=== PATIENT | male | born 1970 | race Caucasian/White ===

== ENCOUNTER 2022-06-03 08:13 | Outpatient (REF) | payer OTHER, SELFPAY ==
--- NOTE | ~2022-06-03 | XR_ITS ---
EXAMINATION: XR LUMBOSACRAL SPINE CLINICAL INFORMATION: Low back pain COMPARISON: None TECHNIQUE: Three views of the lumbosacral spine. FINDINGS: 5 nonrib-bearing lumbar-type vertebral bodies. Scalloping involving the mid and anterior aspect of the superior endplate of L3 which may represent a Schmorl's node versus compression fracture. Correlation with physical exam. Grade 1 retrolisthesis of L3 on L4. Mild multilevel degenerative changes with disc space narrowing osteophyte formation and lower lumbar spine facet arthropathy. Vertebral body heights and disc spaces are maintained. Posterior elements are intact. Paraspinal soft tissues are unremarkable. Bowel gas is unremarkable. XR/XR lumbar spine 2-3V IMPRESSION: 1. Scalloping involving the mid and anterior aspect of the superior endplate of L3 which may represent a Schmorl's node versus compression fracture. Correlation with physical exam. If clinically warranted can consider further evaluation with MRI. 2. Grade 1 retrolisthesis of L3 on L4. 3. Mild multilevel degenerative changes.
[2022-06-03 08:24] LABS: MANUAL DIFF FLAG NO
[2022-06-03 09:25] LABS: Basophils Absolute Auto 0.1 X10*3/uL (0.0-0.2); Basophils Percent Auto 0.8 % (0-2); Eosinophils Absolute Auto 0.4 X10*3/uL (0.0-0.4); Eosinophils Percent Auto 4.2 % (0-4); Hematocrit 43.8 % (42.0-52.0); Hemoglobin 14.6 g/dl (14.0-18.0); Imm Gran Abs Auto 0.07 X10*3/uL (0.00-0.03); Imm Gran Pct Auto 0.7 % (0.0-0.4); Lymphocytes Absolute Auto 2.1 X10*3/uL (1.2-4.9); Lymphocytes Percent Auto 22.1 % (20-40); Mean Corpuscular HGB Conc 33.3 g/dl (31.0-36.0); Mean Corpuscular Hemoglobin 32.3 pg (27.0-33.0); Mean Corpuscular Volume 96.9 fL (80.0-98.0); Mean Platelet Volume 10.1 fL (9.4-12.4); Monocytes Absolute Auto 0.7 X10*3/uL (0.1-1.2); Neutrophils Absolute Auto 6.2 x10*3/uL (2.0-8.3); Neutrophils Percent Auto 65.2 % (45-73); Platelet Count 307 X10*3/uL (160-400); Red Blood Count 4.52 X10*6/uL (4.60-5.80); Red Cell Distribution Width 12.8 % (11.0-16.0); White Blood Count 9.5 X10*3/uL (4.8-10.8)
[2022-06-03 09:27] LABS: Appearance Urine Clear; Color Urine Yellow; Glucose Urine UA Negative (Negative); Leukocyte Esterase Urine Negative (Negative); Nitrite Urine Negative (Negative); Urine Blood Negative (Negative); Urine Ketones Negative (Negative); Urine Protein Negative (Neg-Trace)
[2022-06-03 10:27] LABS: Alanine Aminotransferase 24 U/L (0-40); Albumin Level 4.3 g/dL (3.5-5.0); Alkaline Phosphatase 57 U/L (39-117); Anion Gap 14 (12-20); Aspartate Amino Transferase 24 U/L (5-37); Blood Urea Nitrogen 14 mg/dL (9-16); Calcium 8.9 mg/dL (8.4-10.2); Carbon Dioxide 26 mmol/L (22-29); Chloride 104 mmol/L (96-108); Cholesterol 211 mg/dL; Estimated Glomerular Filt Rate > 60; Glucose Fasting 95 mg/dL (60-99); HDL Cholesterol 45 mg/dL; LDL Cholesterol Calculated 155 mg/dl; Potassium 4.5 mmol/L (3.3-5.1); Sodium 139 mmol/L (135-145); TSH reflex Free T4 0.74 uIU/mL (0.32-4.0); Total Protein 6.9 g/dL (6.5-8.0); Triglycerides 55 mg/dL; Vitamin D 25-OH Total 19.8 ng/mL (>30)
[2022-06-03 10:51] LABS: Bilirubin Total 0.4 mg/dL (0.0-1.0)
== END 2022-06-03 08:14 | disposition home or self-care (01) ==
LOC: HO.LAB 08:13
PROVIDERS: PCP Internal Medicine; Visit Provider Internal Medicine
DX: Z00.00 Encounter for general adult medical examination without abnormal findings (principal); Z12.5 Encounter for screening for malignant neoplasm of prostate; M54.50 Low back pain, unspecified; R30.0 Dysuria; N40.0 Benign prostatic hyperplasia without lower urinary tract symptoms; E55.9 Vitamin D deficiency, unspecified; E78.00 Pure hypercholesterolemia, unspecified; I10 Essential (primary) hypertension
CPT/HCPCS: 36415; 72100; 80053; 80061; 81003; 82306; 84153; 84443; 85025

== ENCOUNTER 2023-10-01 16:16 | Outpatient (AMB) | payer OTHER, SELFPAY ==
--- NOTE | 2023-10-01 16:21 | A.OFFPC_ITS ---
Vital Signs 10/01/23 16:22 Height 5 ft 9 in Weight 166 lb 4 oz BMI 24.5 BP 112/68 Blood Pressure Location Lt brachial Position Sitting Pulse 75 Pulse Source Pulse Oximeter Pulse Oximetry (%) 96 Oxygen Delivery Method Room Air Intake Visit Reasons: Annual Exam Intake Note: Patient is here today for a physical. 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 Family And Marriage Counsellor: Not Required per policy Accompanied by: Self / Same As Patient Allergies sertraline Allergy (Severe, Verified 03/05/25 10:08) Tachycardia nicotine Allergy (Intermediate, Verified 03/05/25 10:08) sore throat morphine Allergy (Mild, Verified 03/05/25 10:08) Vomiting Medication List - Last Reconciled 10/01/23 by Car Wolfe MD fluticasone propion-salmeterol 100-50 mcg/dose (Advair Diskus) ea inhalation BID sildenafil 50 - 100 mg PO Ventolin HFA 90 mcg/actuation (albuterol sulfate) 2 puffs inhalation Q6H PRN NS Tobacco use date assessed: 10/01/23 Dental Screening Dental Screen Date: 10/01/23 Did you have a dental visit in the last 12 months?: No Did you have a dental problem in the last 6 months where you did not have access to dental care?: No Was dental information given to patient?: Patient has dentist HPI Annual Exam HPI Details Patient comes in today for his annual physical examination - was last seen over a year ago in 05/2022 States that he has quit drinking alcohol and has been sober for about 1 yr & 9 months now Reports that he has been having trouble sleeping at night lately but overall, he feels okay He denies any headaches or dizziness Denies any chest pains, no increased SOB No nausea/vomiting, no abdominal pain No change in bowel habits noted He denies any acute urinary symptoms States that he still has low back pain but his back pain has kelin His screening colonoscopy was done in 2019 at [facility] and he will be due for repeat colonoscopy in 1 more year (2024) REPLACED BY [facility] Medical History Benign prostatic hyperplasia with urinary frequency Erectile dysfunction COPD (chronic obstructive pulmonary disease) Benign essential hypertension Surgical History History of colonoscopy Hx of tonsillectomy Hx of appendectomy Hx of cervical discectomy Family History Brother Mental health disorder Substance use disorder Mother COPD (chronic obstructive pulmonary disease) Father Peripheral artery disease Sister Diabetes mellitus Son Diabetes mellitus Social History [facility] Alcohol intake: former Year quit: 2021 Patient Tobacco Use Status: Current everyday Tobacco user Tobacco use type: Cigarette Cigarette Packs Per Day: 1 Cigarettes Per Day: 20 e-Cigarette/Vaping Use: Never Used Second Hand Smoke Exposure: Yes service: Yes ([employer]) Current occupational status: employed Cognitive needs: No Hearing needs: No Vision needs: No Questionnaire PHQ-9 Over the last 2 weeks, how often have you been bothered by any of the following problems? 1. Little interest or pleasure in doing things: not at all 2. Feeling down, depressed, or hopeless: not at all 3. Trouble falling or staying asleep, or sleeping too much: not at all 4. Feeling tired or having little energy: not at all 5. Poor appetite or overeating: not at all 6. Feeling bad about yourself - or that you are a failure or have let yourself or your family down: not at all 7. Trouble concentrating on things, such as reading the newspaper or watching television: not at all 8. Moving or speaking so slowly that other people could have noticed. Or the opposite - being so fidgety or restless that you have been moving around a lot more than usual: not at all 9. Thoughts that you would be better off or of hurting yourself in some way: not at all Total score: 0 Depression Screening Interpretation: Negative Depression Screening Done: Yes 94275 - PHQ-9 Billing: Yes Source: Developed by Drs. Nixon Moreau, Abigail Philip, Peter Peña and colleagues, with an educational tone from [employer]. Thrive Questionnaire Date Thrive assessed: 10/01/23 I am a: Patient What is your living situation today?: I have a steady place to live Within the past 12 months, did the food you bought not last and you didn't have the money to get more?: Never true Within the past 12 months, did you worry whether your food would run out before you got money to buy more?: Never true Do you have trouble paying for medicines?: No Do you have trouble getting transportation to medical appointments?: No Do you have trouble paying your heating and electricity bill?: No Do you have trouble taking care of your child, family member or friend?: No Do you have trouble with day-to-day activities such as bathing, preparing meals, shopping, managing finances, etc.?: No Are you currently unemployed and looking for a job?: No Are you interested in more education?: No Currently or been in a relationship where the following occur: no concerns reported THRIVE Score: 0 AUDIT C Alcohol Use Questionnaire (AUDIT-C) 1. How often do you have a drink containing alcohol?: Never Total Score: 0 Score Reviewed/Action Taken: Yes ZAK-7 AMB Questionnaire ZAK-7 Date ZAK - 7 assessed: 10/01/23 Feeling nervous, anxious, or on edge: 0 = Not at all Not being able to stop or control worryin = Not at all Worrying too much about different things: 0 = Not at all Trouble relaxin = Not at all Being so restless that it is hard to sit still: 0 = Not at all Becoming easily annoyed or irritable: 0 = Not at all Feeling afraid as if something awful might happen: 0 = Not at all Total ZAK-7 score (0-4 normal; 5-9 mild; 10-14 moderate; 15-21 severe): 0 Source: Developed by Drs. Nixon Moreau, Abigail Philip, Peter Peña and colleagues, with an educational tone from [employer]. Review of Systems Const Denies chills, Denies fatigue, Denies fever(s), Denies headache(s), Denies malaise and Denies weakness Eyes Denies blurry vision, Denies change in vision, Denies irritation and Denies itchy eyes ENT Denies dysphagia, Denies dizziness, Denies otalgia, Denies headache(s), Denies nasal congestion, Denies neck pain, Denies odynophagia and Denies sore throat Card Denies chest pain, Denies rapid heart rate, Denies irregular heart rhythm, Denies palpitations and Denies dyspnea Resp Denies chest congestion, Denies cough, Denies dyspnea and Denies wheezing GI Denies abdominal pain, Denies bloating, Denies constipation, Denies dysphagia, Denies heartburn, Denies diarrhea, Denies nausea, Denies odynophagia and Denies vomiting Denies hematuria, Denies difficulty urinating, Denies dysuria, Denies urinary frequency and Denies urinary urgency Musc Reports back pain (over the lower back), Denies arthralgias, Denies joint swelling, Denies muscle weakness and Denies neck pain Skin/Breast Denies change in pigmentation, Denies lesions, Denies rash and Denies unusual bruising Neuro Denies dizziness, Denies headache(s), Denies paresthesias and Denies weakness Endo Denies fatigue and Denies palpitations Aller/Immun Denies itchy eyes and Denies wheezing Physical exam (Primary Care) Vital Signs: Last Vital Signs Pulse 75 10/01/23 16:22 BP 112/68 10/01/23 16:22 Pulse Ox 96 10/01/23 16:22 Oxygen Delivery Method Room Air 10/01/23 16:22 BMI result Body Mass Index 24.5 Tobacco/Smoking Status: Tobacco use Status Tobacco use date assessed 10/01/23 10/01/23 16:29 Patient Tobacco Use Status Current everyday Tobacco 10/01/23 16:29 Tobacco use type Cigarette 10/01/23 16:29 e-Cigarette/Vaping Use Never Used 10/01/23 16:29 PHQ-9: PHQ-9 Score PHQ-9: Total score 0 10/01/23 16:58 Depression Screening Interpretation: Negative Thrive Assessment: Date of Thrive Assessment Date Thrive assessed 10/01/23 10/01/23 16:29 Currently or been in a relationship where the following occur: no concerns reported Const General: no acute distress, alert and awake Orientation/consciousness: patient oriented x3 HENMT Head: Yes normocephalic and Yes atraumatic Ears: external ears normal, TM's normal bilaterally and EAC's normal General nose exam: No nasal discharge present Face and sinus: Yes normal facial exam and Yes sinuses nontender Teeth and gingiva: dentition normal Throat: Yes posterior oropharynx normal and Yes tonsils normal (no TP congestion) Eyes Eyelids: Yes eyelids normal Conjunctivae: conjunctivae normal Pupils: Equal, round and reactive pupils present EOM: EOMs intact bilaterally Neck Neck: Yes no lymphadenopathy and Yes supple Thyroid: Thyroid normal Resp Auscultation: clear to auscultation bilaterally, no rales and no wheezes Cardio Rate: regular rate Rhythm: regular rhythm Heart sounds: no murmurs GI Palpation (GI): Soft to palpation, nontender and No hepatosplenomegaly present Auscultation: normal bowel sounds General: Yes no CVA tenderness Back/Spine/Pelvis Back: no CVA tenderness Thoracic/Lumbar Spine: lumbar spinal tenderness (mild) Skin Lesions: no lesions Rashes: no rashes Neuro General: patient oriented x3, moves all extremities, no focal motor deficits and CN's II-XI intact bilaterally Cranial nerves: Yes Equal, round and reactive pupils present Cognition (Neuro): normal cognition Gait exam (Neuro): Normal gait present Extrem General: Yes no clubbing, cyanosis or edema Coding Level of Care Code Est Pt Prev Care 40-64y(85228) Diagnoses Annual physical exam Z00.00 Benign essential hypertension I10 Pulmonary emphysema, unspecified emphysema type J43.9 COPD type: emphysema Emphysema type: unspecified Benign prostatic hyperplasia with urinary frequency N40.1; R35.0 Erectile dysfunction, unspecified erectile dysfunction type N52.9 Erectile dysfunction type: unspecified Compression fracture of lumbar vertebra, unspecified lumbar vertebral level, sequela S32.000S Encounter type: sequela Lumbar vertebra fracture level: unspecified lumbar vertebra Insomnia, unspecified type G47.00 Insomnia type: unspecified
[2023-10-01 16:22] VITALS: BP 112/68; PULSE 75; O2SAT 96; BMI 24.5
== END 2023-10-01 17:07 | disposition home or self-care (01) ==
PROVIDERS: PCP Internal Medicine; Visit Provider Internal Medicine
DX: Z00.00 Encounter for general adult medical examination without abnormal findings (principal); I10 Essential (primary) hypertension; J43.9 Emphysema, unspecified; N40.1 Benign prostatic hyperplasia with lower urinary tract symptoms; R35.0 Frequency of micturition; N52.9 Male erectile dysfunction, unspecified; S32.000S Wedge compression fracture of unspecified lumbar vertebra, sequela; G47.00 Insomnia, unspecified
CPT/HCPCS: 99499

== ENCOUNTER 2025-03-05 09:55 | Outpatient (AMB) | payer OTHER, SELFPAY ==
[2025-03-05 10:07] VITALS: BP 130/82; PULSE 60; O2SAT 97; BMI 22.7
--- NOTE | 2025-03-05 10:07 | MHC.PC.OV ---
Vital Signs 03/05/25 10:07 Height 5 ft 9 in Weight 153 lb 8 oz BMI 22.7 BP 130/82 Blood Pressure Location Lt brachial Position Sitting Pulse 60 Pulse Source Pulse Oximeter Pulse Oximetry (%) 97 Oxygen Delivery Method Room Air Intake Visit Reasons: backwyin Sap Portal Developer Required: No Accompanied by: Self / Same As Patient Allergies sertraline Allergy (Severe, Verified 03/05/25 10:26) Tachycardia nicotine Allergy (Intermediate, Verified 03/05/25 10:26) sore throat morphine Allergy (Mild, Verified 03/05/25 10:26) Vomiting Medication List - Last Reconciled 03/05/25 by Car Wolfe MD fluticasone propion-salmeterol 100-50 mcg/dose (Advair Diskus) 1 inh inhalation BID 30 days sildenafil 50 - 100 mg (0.5 - 1 x 100 mg) PO DAILY PRN trazodone Take 1 to 2 tablets orally bedtime PRN; Ventolin HFA 90 mcg/actuation (albuterol sulfate) 2 puffs inhalation Q6H PRN NS Tobacco use date assessed: 03/05/25 Dental Screening Dental Screen Date: 03/05/25 Did you have a dental visit in the last 12 months?: Yes Did you have a dental problem in the last 6 months where you did not have access to dental care?: No Was dental information given to patient?: Patient has dentist HPI backwyin HPI Details Patient comes in today for his ANNUAL PHYSICAL EXAMINATION States that he has been experiencing increasing low back pain over the past few months Notes that he has been waking up in the morning lately already with increased pain and stiffness in his right thigh and leg and he has to slowly stretch his right leg out and move it around for a few minutes before his leg symptoms will start easing up Recalls that his father was diagnosed with peripheral arterial disease and was experiencing leg symptoms similar to these and he is wondering if he is also starting to develop the same condition as his father Adds that he has been unable to gain any weight over the past year or so States that he quit drinking alcohol completely about 2 years ago and lost a lot of weight initially after he quit as he was not eating properly but states that his appetite has improved significantly over the past year and he still has not been able to gain any weight as a result He denies any headaches or dizziness Denies any chest pains, no increased shortness of breath No nausea/vomiting, no abdominal pain No change in bowel habits noted He denies any acute urinary symptoms He had his screening colonoscopy last done with Dr. Augustine in 2019 and is due now for repeat colonoscopy (5 year recall) [facility] Medical History (Updated 03/08/25 @ 21:13 by Car Wolfe MD) History of alcohol use Smoker Benign prostatic hyperplasia with urinary frequency Erectile dysfunction COPD (chronic obstructive pulmonary disease) Benign essential hypertension Surgical History History of colonoscopy Hx of tonsillectomy Hx of appendectomy Hx of cervical discectomy Family History Brother Mental health disorder Substance use disorder Mother COPD (chronic obstructive pulmonary disease) Father Peripheral artery disease Sister Diabetes mellitus Son Diabetes mellitus Social [facility] Alcohol intake: former Year quit: 2021 Patient Tobacco Use Status: Current everyday Tobacco user Tobacco use type: Cigarette Cigarette Packs Per Day: 1 Cigarettes Per Day: 20 e-Cigarette/Vaping Use: Never Used Second Hand Smoke Exposure: Yes service: Yes ([employer]) Current occupational status: employed Cognitive needs: No Hearing needs: No Vision needs: No Questionnaire PHQ-9 Over the last 2 weeks, how often have you been bothered by any of the following problems? 1. Little interest or pleasure in doing things: several days 2. Feeling down, depressed, or hopeless: not at all 3. Trouble falling or staying asleep, or sleeping too much: several days 4. Feeling tired or having little energy: nearly every day 5. Poor appetite or overeating: nearly every day 6. Feeling bad about yourself - or that you are a failure or have let yourself or your family down: not at all 7. Trouble concentrating on things, such as reading the newspaper or watching television: not at all 8. Moving or speaking so slowly that other people could have noticed. Or the opposite - being so fidgety or restless that you have been moving around a lot more than usual: not at all 9. Thoughts that you would be better off or of hurting yourself in some way: not at all Total score: 8 Depression Screening Interpretation: Positive Depression Screening Follow-up: Existing condition and Follow-up Visit Requested Depression Screening Done: Yes 85813 - PHQ-9 Billing: Yes Source: Developed by Drs. Nixon Moreau, Abigail Philip, Peter Peña and colleagues, with an educational tone from [employer]. Thrive Questionnaire Date Thrive assessed: 03/05/25 I am a: Patient What is your living situation today?: I have a steady place to live Within the past 12 months, did the food you bought not last and you didn't have the money to get more?: Never true Within the past 12 months, did you worry whether your food would run out before you got money to buy more?: Never true Do you have trouble paying for medicines?: No Do you have trouble getting transportation to medical appointments?: No Do you have trouble paying your heating and electricity bill?: No Do you have trouble taking care of your child, family member or friend?: No Do you have trouble with day-to-day activities such as bathing, preparing meals, shopping, managing finances, etc.?: No Are you currently unemployed and looking for a job?: No Are you interested in more education?: I choose not to answer this question Please select the resources that you would like help with: None Currently or been in a relationship where the following occur: I choose not to answer THRIVE Score: 0 AUDIT C Alcohol Use Questionnaire (AUDIT-C) 1. How often do you have a drink containing alcohol?: Never 3. How often do you have six or more drinks on one occasion?: Never Total Score: 0 Score Reviewed/Action Taken: Yes ZAK-7 AMB Questionnaire ZAK-7 Date ZAK - 7 assessed: 03/05/25 Feeling nervous, anxious, or on edge: 1 = Several days Not being able to stop or control worryin = Several days Worrying too much about different things: 0 = Not at all Trouble relaxin = Several days Being so restless that it is hard to sit still: 1 = Several days Becoming easily annoyed or irritable: 1 = Several days Feeling afraid as if something awful might happen: 0 = Not at all Total ZAK-7 score (0-4 normal; 5-9 mild; 10-14 moderate; 15-21 severe): 5 Source: Developed by Drs. Nixon Moreau, Abigail Philip, Peter Peña and colleagues, with an educational tone from [employer]. Review of Systems Const Denies chills, Denies fatigue, Denies fever(s), Denies headache(s), Denies malaise, Denies weakness and Reports weight loss Eyes Denies blurry vision, Denies change in vision, Denies irritation and Denies itchy eyes ENT Denies dysphagia, Denies dizziness, Denies otalgia, Denies headache(s), Denies nasal congestion, Denies neck pain, Denies odynophagia and Denies sore throat Card Denies chest pain, Denies rapid heart rate, Denies irregular heart rhythm, Denies palpitations and Denies dyspnea Resp Denies chest congestion, Denies cough, Denies dyspnea and Denies wheezing GI Denies abdominal pain, Denies bloating, Denies constipation, Denies dysphagia, Denies heartburn, Denies diarrhea, Denies nausea, Denies odynophagia and Denies vomiting Denies hematuria, Denies difficulty urinating, Denies dysuria, Denies urinary frequency and Denies urinary urgency Musc Denies back pain, Denies arthralgias, Denies joint swelling, Denies muscle weakness and Denies neck pain Skin/Breast Denies change in pigmentation, Denies lesions, Denies rash and Denies unusual bruising Neuro Denies dizziness, Denies headache(s), Denies paresthesias and Denies weakness Endo Denies fatigue and Denies palpitations Aller/Immun Denies itchy eyes and Denies wheezing Physical exam (Primary Care) Vital Signs: Last Vital Signs Pulse 60 03/05/25 10:07 BP 130/82 03/05/25 10:07 Pulse Ox 97 03/05/25 10:07 Oxygen Delivery Method Room Air 03/05/25 10:07 BMI result Body Mass Index 22.7 Tobacco/Smoking Status: Tobacco use Status Tobacco use date assessed 03/05/25 03/05/25 10:13 Patient Tobacco Use Status Current everyday Tobacco 03/05/25 10:13 Tobacco use type Cigarette 03/05/25 10:13 e-Cigarette/Vaping Use Never Used 09/04/25 10:13 PHQ-9: PHQ-9 Score PHQ-9: Total score 8 03/05/25 14:15 Depression Screening Interpretation: Positive Depression Screening Follow-up: Existing condition and Follow-up Visit Requested Thrive Assessment: Date of Thrive Assessment Date Thrive assessed 03/05/25 03/05/25 10:13 Currently or been in a relationship where the following occur: I choose not to answer Const General: no acute distress, alert and awake Orientation/consciousness: patient oriented x3 HENMT Head: Yes normocephalic and Yes atraumatic Ears: external ears normal, TM's normal bilaterally and EAC's normal General nose exam: No nasal discharge present Face and sinus: Yes normal facial exam and Yes sinuses nontender Teeth and gingiva: dentition normal Throat: Yes posterior oropharynx normal and Yes tonsils normal (no TP congestion) Eyes Eyelids: Yes eyelids normal Conjunctivae: conjunctivae normal Pupils: Equal, round and reactive pupils present EOM: EOMs intact bilaterally Neck Neck: Yes no lymphadenopathy and Yes supple Thyroid: Thyroid normal Resp Auscultation: clear to auscultation bilaterally, no rales and no wheezes Cardio Rate: regular rate Rhythm: regular rhythm Heart sounds: no murmurs GI Palpation (GI): Soft to palpation, nontender and No hepatosplenomegaly present Auscultation: normal bowel sounds General: Yes no CVA tenderness Back/Spine/Pelvis Back: no CVA tenderness Thoracic/Lumbar Spine: thoracic and lumbar spine normal to inspection Skin Lesions: no lesions Rashes: no rashes Neuro General: patient oriented x3, moves all extremities, no focal motor deficits and CN's II-XI intact bilaterally Cranial nerves: Yes Equal, round and reactive pupils present Cognition (Neuro): normal cognition Gait exam (Neuro): Normal gait present Extrem General: Yes no clubbing, cyanosis or edema Coding Level of Care Code Est Pt Prev Care 40-64y(79550) Diagnoses Annual physical exam Z00.00 Pulmonary emphysema, unspecified emphysema type J43.9 COPD type: emphysema Emphysema type: unspecified Compression fracture of lumbar vertebra, unspecified lumbar vertebral level, sequela S32.000S Encounter type: sequela Lumbar vertebra fracture level: unspecified lumbar vertebra Erectile dysfunction, unspecified erectile dysfunction type N52.9 Erectile dysfunction type: unspecified History of alcohol use Z87.898 Insomnia, unspecified type G47.00 Insomnia type: unspecified Smoker F17.200 Colon cancer screening Z12.11 Additional Codes PHQ-9 - 10240 - PHQ-9 Billing: Yes ([id number]) Assessment & Plan Assessment & Plan (1) Annual physical exam: Code(s): Z00.00 - Encounter for general adult medical examination without abnormal findings Category: Medical Plan: Check labs He is now due for repeat colonoscopy (2) COPD (chronic obstructive pulmonary disease): Code(s): J44.9 - Chronic obstructive pulmonary disease, unspecified Category: Medical Qualifiers: COPD type: emphysema Emphysema type: unspecified Qualified Code(s): J43.9 - Emphysema, unspecified Plan: Continue Advair Diskus 100-50 mcg 1 inhalation BID and Ventolin HFA 1 to 2 inhalations Q 6 hours PRN Will send him for chest x-rays for further evaluation, especially in light of his struggles in regaining some of the weight that he lost immediately following his alcohol cessation (3) Compression fx, lumbar spine: Comment: injury occurred when he fell from roof years ago Code(s): S32.000A - Wedge compression fracture of unspecified lumbar vertebra, initial encounter for closed fracture Category: Medical Qualifiers: Encounter type: sequela Lumbar vertebra fracture level: unspecified lumbar vertebra Qualified Code(s): S32.000S - Wedge compression fracture of unspecified lumbar vertebra, sequela Plan: Reinforced activity and weight-lifting restrictions to avoid aggravating his low back pain (4) Erectile dysfunction: Code(s): N52.9 - Male erectile dysfunction, unspecified Category: Medical Qualifiers: Erectile dysfunction type: unspecified Qualified Code(s): N52.9 - Male erectile dysfunction, unspecified Plan: Continue Sildenafil 50 to 100 mg PRN (5) History of alcohol use: Code(s): Z87.898 - Personal history of other specified conditions Category: Medical Plan: Patient states that he has been sober for over 2 years now He is encouraged to continue working on maintaining his sobriety (6) Insomnia: Code(s): G47.00 - Insomnia, unspecified Category: Medical Qualifiers: Insomnia type: unspecified Qualified Code(s): G47.00 - Insomnia, unspecified Plan: Sleep hygiene reinforced Continue Trazodone 50 mg 1 to 2 tablets Q HS PRN (7) Smoker: Code(s): F17.200 - Nicotine dependence, unspecified, uncomplicated Category: Social Hx Plan: Patient is again counseled on complete smoking cessation Per request, will start him on Nicotine patches to help him quit Will also refer him for lung cancer screening due to his history of smoking (8) Colon cancer screening: Code(s): Z12.11 - Encounter for screening for malignant neoplasm of colon Category: Medical Plan: He is now due for repeat colonoscopy and will refer him back [place] [facility] for this Plan Follow up in 3 months Orders: Orders Lipid Panel 03/05/25 E78.00 - Pure hypercholesterolemia, unspecified, Z00.00 - Encounter for general adult medical examination without abnormal findings Testosterone, Free/Total 03/05/25 R63.4 - Abnormal weight loss Complete Blood Count Auto Diff 03/05/25 D64.9 - Anemia, unspecified, Z00.00 - Encounter for general adult medical examination without abnormal findings Comprehensive [place]. Panel Fast 03/05/25 E78.00 - Pure hypercholesterolemia, unspecified, Z00.00 - Encounter for general adult medical examination without abnormal findings TSH reflex Free T4 03/05/25 E78.00 - Pure hypercholesterolemia, unspecified, Z00.00 - Encounter for general adult medical examination without abnormal findings UA CC w/rflx Micro + Cult 03/05/25 R30.0 - Dysuria, Z00.00 - Encounter for general adult medical examination without abnormal findings Vitamin D 25-OH Total 03/05/25 E55.9 - Vitamin D deficiency, unspecified, Z00.00 - Encounter for general adult medical examination without abnormal findings Vitamin B12 and Folate 03/05/25 E53.8 - Deficiency of other specified B group vitamins, Z00.00 - Encounter for general adult medical examination without abnormal findings Magnesium 03/05/25 E83.42 - Hypomagnesemia, Z00.00 - Encounter for general adult medical examination without abnormal findings Prostate Specific Antigen 03/05/25 N40.0 - Benign prostatic hyperplasia without lower urinary tract symptoms, Z00.00 - Encounter for general adult medical examination without abnormal findings XR chest 2V 03/05/25 F17.200 - Nicotine dependence, unspecified, uncomplicated, R05.9 - Cough, unspecified Hemoglobin A1c 03/05/25 R73.01 - Impaired fasting glucose Referrals Gastroenterology Referral Z12.11 - Encounter for screening for malignant neoplasm of colon Thoracic/General Surgery Referral Z12.2 - Encounter for screening for malignant neoplasm of respiratory organs Medications: New nicotine 1 patch transdermal DAILY 7 ea 0RF 7 days F17.200 - Nicotine dependence, unspecified, uncomplicated nicotine 1 patch transdermal DAILY 7 ea 0RF 7 days F17.200 - Nicotine dependence, unspecified, uncomplicated nicotine 1 patch transdermal Q24H 28 ea 5RF 28 days F17.200 - Nicotine dependence, unspecified, uncomplicated
--- OUTSIDE RECORDS SUMMARY | 2025-03-05 11:00 | XMS_ITS | Encounter Summary ---
Author Organization [facility] Address [address] [place] [id number] Phone Care Team Providers Care Stocklayer Name Role Phone Chela Baca CNP Unavailable Shari Albert MD Unavailable [phone] Raffi Bird MD Unavailable Unavailable Nestor Carmen MD, MPH Primary Care Provider + Encounter Details Date Type Department Care Team (Late st Contact Info) Description 11/30/2020 Procedure Pass [facility] Endoscopy Admitting Dept Virtual Department [address] [place] [id number] Social History Tobacco Use Types Packs/Day Years Used Date Smoking Tobacco: Every Day Cigarettes 1 5 Smokeless Tobacco: Never Alcohol Use Standard Drinks/Week Comments Yes 50 (1 standard drink = 0.6 oz pu re alcohol) Sex and Gender Information Value Date Recorded Sex Assigned at Male 06/01/2020 6:08 PM EST Legal Sex Male 9:37 PM EDT Gender Identity Male 06/01/2020 6:08 PM EST Sexual Orientation Straight 06/01/2020 6: 08 PM EST documented as of this encounter Plan of Treatment Not on file documented as of this encounter Visit Diagnoses Not on filedocumented in this encounter Care Teams Stocklayer Relationship Specialty Start Date End Date Nestor Carmen MD, MPH [address] [place] [address] [email or web address] PCP - General Family Medicine 09/11/19 Chela Baca CNP [address] [place] [address] [address] [place] [address] [email or web address] Historical LMR Provider 04/21/17 Shari Albert MD [address] [place] [address] [address] [place] [address] [email or web address] Historical LMR Provider 04/21/17 07/09/21 Raffi Bird MD Historical LMR Provider 04/21/17 07/09/21 documented as of this encounter Additional Source Comments The information contained in this document represents components of the legal health record. It is not the complete legal health record.[facility]
--- OUTSIDE RECORDS SUMMARY | 2025-03-05 11:01 | XMS_ITS | Clinical Summary ---
Author Organization [facility] Address [facility] [address] [address] Phone Care Team Providers Care Bilingual Interpreter Name Role Phone Chela Baca PHYSICAL SCIENCE PROFESSOR Unavailable [phone] Nestor Carmen MD, MPH Primary Care Provider + Allergies Active Allergy Reactions Criticality Noted Date Comments Morphine Sulfate 03/12/2017 Other reaction(s): nausea Sertraline Hcl 03/12/2017 Other reaction(s): vomiting,throat tightness Medications LISINOPRIL ORAL Take by mouth. Active HYDROCHLOROTHIAZ GRETEL ORAL Take by mouth. Active Active Problems Problem Noted Date Diagnosed Date Pulmonary nodules 06/29/2018 Assessment & Plan (06/29/2018 12:21 PM EST): Repeat CT scan in 3 months for reevaluation of multiple pulmonary nodules. COPD with chronic bronchitis 06/03/2018 Assessment & Plan (06/29/2018 12:18 PM EST): Some chronic wheezing and chronic cough, although pt declines treatments at this time. Urged staying up to date on flu and pneumococcal vaccines. F/u for any worsening wheezing or shortness of breath, or increasing cough productivity. Benign prostatic hyperplasia 06/03/2018 Cervical disc disease 06/03/2018 Depression with anxiety 06/03/2018 Assessment & Plan (06/29/2018 12:23 PM EST): Overall improvement with Wellbutrin XL. Continue current therapies, may consider increasing dose in future. Pt verbalizes understanding and in agreement with plan. Assessment & Plan (06/03/2018 3:25 PM EST): Discussed treatment options. Will start Wellbutrin XL 150 daily for depression and anxiety, which also has indication for smoking cessation. Pt reports that he has been on Wellbutrin in the past with good effect. F/u in office in 3 weeks Erectile dysfunction 06/03/2018 Assessment & Plan (07/09/2018 3:51 PM EST): Continue Viagra as needed. Assessment & Plan (06/29/2018 12:22 PM EST): Will do rx for Viagra. Pt instructed on use, side effects, and adverse effects. F/u as needed for concerns. Family history of aortic aneurysm 06/03/2018 GERD (gastroesophageal reflux disease) 8 Insomnia 06/03/2018 Assessment & Plan (07/09/2018 3:50 PM EST): Improved with use of Mirtazapine. Continue current therapies and f/u in 2 months as scheduled. Assessment & Plan (06/29/2018 12:26 PM EST): Will start Remeron which will help with smoking cessation and appetite stimulation. Pt instructed on use, side effects, and adverse effects. F/u in 6 weeks or sooner as needed. Pt verbalizes understanding and in agreement with plan. Assessment & Plan (06/03/2018 3:24 PM EST): May consider starting Remeron, which will help with sleep and appetite stimulation. Will discuss at f/u appointment in 3 weeks. Low back pain 06/03/2018 Tobacco abuse 06/03/2018 Assessment & Plan (07/09/2018 3:51 PM EST): Pt commended on cutting back on tobacco use. Okay to stop Wellutrin, rx done for Nicorette gum. F/u in 2 months as scheduled. Assessment & Plan (06/29/2018 12:33 PM EST): Continue Wellbutrin. May consider tobacco cessation coaching. 5 minutes of this 30 minute appointment was spent discussing smoking cessation. Will check lipid level today since pt reports that he is fasting and f/u based on results. Assessment & Plan (06/03/2018 3:26 PM EST): 5 minutes of this 15 minute appointment was spent discussing smoking cessation. Pt reports low motivation at this time. Pt declines smoking cessation resources at this time. Alcohol abuse 06/03/2018 Assessment & Plan (06/29/2018 12:25 PM EST): Pt commended on cutting back on alcohol intake. Urged abstinence. Assessment & Plan (06/03/2018 3:25 PM EST): Urged to cut back on alcohol use. Will prescribe multivitamin, thiamine, and folic acid for pt due to his likely poor nutrition and regular alcohol use. Pt verbalizes understanding and in agreement with plan. Unintentional weight loss 06/03/2018 Assessment & Plan (06/29/2018 12:20 PM EST): Suspect this is related to recent stress but pt with another 4 lbs of weight loss over past month. Would recommend regular meals, protein-rich snacks, and avoid alcohol use. If weight loss continues, may consider scanning abdomen and pelvis for other signs of malignancy. Pt verbalizes understanding and in agreement with plan. Assessment & Plan (06/03/2018 3:23 PM EST): Likely related to high situational stress/anxiety, but will do further work up with blood work and possibly CT scanning. Will f/u closely by phone with testing results and f/u in office in 3 weeks. Pt verbalizes understanding and in agreement with plan. Chronic cough 06/03/2018 Assessment & Plan (06/03/2018 3:22 PM EST): Likely undiagnosed COPD due to long history of tobacco abuse. May consider further work up with CT scan of chest if blood work in unremarkable. Pt verbalizes understanding and in agreement with plan. Resolved Problems Problem Noted Date Diagnosed Date Resolved Date Visit for vasectomy evaluation 07/09/2018 07/09/2018 Assessment & Plan (07/09/2018 3:50 PM EST): Will do referral to Dr. Toledo of urology for elective vasectomy. Pt will call to make appointment. Other viral warts 06/29/2018 06/29/2018 Assessment & Plan (06/29/2018 12:31 PM EST): Verbal consent for treatment with liquid nitrogen obtained. Area cleansed with alcohol. Each wart pared down using a #11 scalpel. Using the [id number] technique, each lesion treated with liquid nitrogen for 2 cycles of 10 seconds. Pt tolerated well. Pt instructed on normal healing process after liquid nitrogen treatment. Pt verbalizes understanding Social History Tobacco Use Types Packs/Day Years Used Date Smoking Tobacco: Every Day Cigarettes 1 5 Smokeless Tobacco: Never Tobacco Cessation:Ready to Q uit: No; Counseling Given: No Alcohol Use Standard Drinks/Week Comments Yes 50 (1 standard drink = 0.6 oz pu re alcohol) Education Answer Date Recorded Are you interested in more education? Not on ann e 10/27/2022 Are you concerned about learning? Not on file 10/27/2022 No 10/27/2022 No 10/27/2022 Digital Access Answer Date Recorded No 11/27/2022 No 11/27/2022 Reliable internet access at home? Not on file 11/27/2022 Device with a working camera? Not on file Sex and Gender Information Value Date Recorded Sex Assigned at Male 06/01/2020 6:08 PM EST Legal Sex Male 9:37 PM EDT Gender Identity Male 06/01/2020 6:08 PM EST Sexual Orientation Straight 06/01/2020 6: 08 PM EST Last Filed Vital Signs Vital Sign Reading Time Taken Comments Blood Pressure 159/85 11/30/2020 2:01 PM EDT Pulse 77 11/30/2020 1:46 PM EDT Temperature 36.2 C (97.2 F) 11/30/2020 1:46 PM EDT Respiratory Rate 16 11/30/2020 2:01 PM EDT Oxygen Saturation 100% 11/30/2020 2:01 PM EDT Inhaled Oxygen Concentration - - Weight 77.1 kg (170 lb) 11/26/2020 10:20 AM EDT Height 177.8 cm (5' 10 ) 11/26/2020 10:20 AM EDT Body Mass Index 24.39 11/26/2020 10:20 AM EDT Plan of Treatment Health Maintenance Due Date Last Done Comments DEPRESSION SCREENING 1980 SMOKING Hx and SMOKELESS TOBACCO SCREENING 1981 HEPATITIS C SCREENING 1986 HIV ONE-TIME SCREENING (18-6 5 YEARS) 1986 PNEUMOCOCCAL VACCINES (50+ years) (1 of 2 - PCV) 1987 COLOGUARD 2013 FIT TEST 2013 FOBT 2013 SIGMOIDOSCOPY 2013 VIRTUAL COLONOSCOPY 2013 ZOSTER VACCINES (1 of 2) 2018 CREATININE LEVEL 06/03/2019 06/03/2018 POTASSIUM LEVEL 06/03/2019 06/03/2018 LIPID PANEL 06/28/2023 06/28/2018, 03/20/2015 INFLUENZA VACCINE (#1) 2025 0, 04/09/2019 COVID-19 VACCINE (3 - 2024-2 6 season) 2025 07/30/2020, 06/30/2020 Adult Td,Tdap Booster 04/14/2029 04/14/2019 , 02/13/2008 COLONOSCOPY 11/30/2030 11/30/2020 COLORECTAL CANCER SCREENING 11/30/2030 HEPATITIS A VACCINES Aged Out No long er eligible based on patient's age to complete this topic HIB VACCINES Aged Out No longer eligi ble based on patient's age to complete this topic MENINGOCOCCAL VACCINES (ACWY) Aged Out No longer eligible based on patient's age to complete this topic MENINGOCOCCAL VACCINES (B) Aged Out N o longer eligible based on patient's age to complete this topic Medical Devices Not on file Procedures Procedure Name Priority Date/Time Associated Diagnosis Comments ENDOSCOPY, COLON 11/30/2020 1:22 PM EDT LIPID PANEL Routine 06/28/2018 4:45 PM EST Tobacco abuse COMPREHENSIVE METABOLIC PANEL Routine 06/03/2018 8:49 AM EST Unintentional weight loss from Last 3 Months or Most Recently Relevant to Health Maintenance Results * ENDOSCOPY, COLON (11/30/2020 1:22 PM EDT) Narrative Transcriptions Yony Martin MD - 11/30/2020 1:22 PM EDT Patient Name: Capo Can Attending MD:: YONY MARTIN MD, Procedure Date: 11/30/2020 1:22 PM Date of : 1970 Age: 50 Admit Type: Outpatient Gender: Male Room: [place] [address] Referring MD: Nestor Carmen MD Exam Type: Colonoscopy Indications: Chronic diarrhea, Hematochezia Medications: Monitored Anesthesia Care Procedure: Informed consent was obtained from the patient after discussion of the indications, limitations, alternatives, benefits, and risks of the procedure. Risks specifically discussed include but are not limited to medication reactions, missed lesions, bleeding, perforation, or the need for emergentsurgery. Throughout the procedure, the patient's bloodpressure, pulse, end-tidal CO2, and oxygen saturations were monitored continuously. The Olympus pediatric variable colonoscopePCF-[id number] #3 was introduced through the anus and advanced tothe cecum, identified by appendiceal orifice andileocecal valve. The colonoscopy was performed without difficulty. The patient tolerated the procedurewell. The quality of the bowel preparation wasexcellent. Complications: No immediate complications. Estimated blood loss: Minimal. Findings: The perianal and digital rectal examinations were normal. A 2 mm polyp was found in the ascending colon. The polyp was sessile. The polyp was removed with a cold biopsy forceps. Resection and retrieval werecomplete. Two sessile polyps were found in the descendingcolon. The polyps were diminutive in size. These polypswere removed with a cold biopsy forceps. Resection and retrieval were complete. Scattered small and large-mouthed diverticula were found in the sigmoid colon and ascending colon. Internal hemorrhoids were found during retroflexion. The hemorrhoids were moderate. Anal papilla(e) were hypertrophied. Biopsies for histology were taken with a coldforceps from the right colon and left colon for evaluationof microscopic colitis. The exam was otherwise normal throughout theexamined colon. Impression: - One 2 mm polyp in the ascending colon, removedwith a cold biopsy forceps. Resected and retrieved. - Two diminutive polyps in the descending colon, removed with a cold biopsy forceps. Resected and retrieved. - Diverticulosis in the sigmoid colon and in the ascending colon. - Internal hemorrhoids. - Biopsies were taken with a cold forceps from the right colon and left colon for evaluation of microscopic colitis. Recommendation: - Discharge patient to home. - Await pathology results. - Hemorrhoids are likely the source of rectalbleeding, consider hemorrhoid banding, - Return to GI office as previously scheduled. YONY MARTIN MD, 11/30/2020 1:48:19 PM This report has been signed electronically. Number of Addenda: 0 Note Initiated On: 11/30/2020 1:22 PM Procedure Code(s): --- Professional --- 93227, Colonoscopy, flexible; with biopsy, single or multiple --- Technical --- 41002, Colonoscopy, flexible; with biopsy, single or multiple Diagnosis Code(s): --- Professional --- D12.2, Benign neoplasm of ascending colon D12.4, Benign neoplasm of descending colon K64.8, Other hemorrhoids K52.9, Noninfective gastroenteritis and colitis, unspecified K92.1, Melena (includes Hematochezia) K57.30, Diverticulosis of large intestine without perforation or abscess without bleeding --- Technical --- D12.2, Benign neoplasm of ascending colon D12.4, Benign neoplasm of descending colon K64.8, Other hemorrhoids K52.9, Noninfective gastroenteritis and colitis, unspecified K92.1, Melena (includes Hematochezia) K57.30, Diverticulosis of large intestine without perforation or abscess without bleeding CPT copyright 2018 [employer]. All rights reserved. The codes documented in this report are preliminary and upon ammunition assembly laborer reviewmay be revised to meet current compliance requirements. Procedure Date: 11/30/2020 1:22:[address] [place] [id number] [place] Nestor Carmen MD, MPH GI PROCEDURE ORDERABLES Final Result * (ABNORMAL) Lipid panel (06/28/2018 4:45 PM EST) HDL 69 mg/dL [facility] Comment: Interpretation <40 mg/dL: Low HDL cholesterol (major risk factor for CHD) Greater than or equal to 60 mg/dL: High HDL cholesterol ( negative risk factor for CHD) HDL - cholesterol is affected by a number of factors, e.g. smoking, excerise, hormones, sex and age. CHOLESTEROL 158 0 - 240 mg/dL [facility] TRIGLYCERIDES 70 30 - 160 mg/dL [facility] LDL 75 50 - 129 mg/dL [facility] Comment: LDL levels in terms of risk for coronary heart disease: <100 mg/dL: Optimal 100-129 mg/dL: Near or above optimal 130-159 mg/dL: Borderline high 160-189 mg/dL: High >190 mg/dL: Very High CARDIAC RISK RATIO 2.3(L) 3.4 - 5.0 C [facility] Blood 06/28/2018 4:45 PM EST 06/28/2018 6:34 PM EST us Chela Baca PHYSICAL SCIENCE PROFESSOR LAB BLOOD ORDERABLES F inal Result [address] [address] * (ABNORMAL) Comprehensive metabolic panel (06/03/2018 8:49 AM EST) SODIUM 140 133 - 146 mmol/L [facility] POTASSIUM 4.7 3.3 - 5.1 mmol/L [facility] CHLORIDE 100 96 - 108 mmol/L [facility] CO2 24 21 - 35 mmol/L [facility] BUN 9 6 - 19 mg/dL [facility] CREATININE 0.70 0.5 - 1.5 mg/dL [facility] GLUCOSE 96 70 - 99 mg/dL [facility] ALBUMIN 4.4 3.9 - 4.8 g/dL [facility] TOTAL PROTEIN 7.2 6.5 - 8.0 g/dL [facility] CALCIUM 9.4 8.4 - 10.3 mg/dL [facility] ALKALINE PHOSPHATASE 46 39 - 117 U/L [facility] TOTAL BILIRUBIN 0.4 0.0 - 1.2 mg/dL [facility] AST 26 0 - 37 U/L [facility] ALT 20 0 - 40 U/L [facility] GLOBULIN 2.8 1 - 4.8 g/dL [facility] EGFR 110 >59 mL/min/1.7 3m2 [facility] Comment:If patient is black, multiply result by 1.159. Estimated glomerular filtration rate calculated using the CKD-EPI equation. ANION GAP 21(H) 10 - 20 mmol/L [facility] Blood 06/03/2018 8:49 AM EST 06/03/2018 2:08 PM EST Chela Baca PHYSICAL SCIENCE PROFESSOR LAB BLOOD ORDERABLES F inal Result Performing Organization Address City/State/[facility] Co de Phone Number [address] [address] from Last 3 Months or Most Recently Relevant to Health Maintenance Insurance [facility] [address] [place], [place] [address] [place] [address] [place] [address] [place] [address] [place] [place] [address] [place], [place] [address] [facility] Address: [address] [address] Care Teams Bilingual Interpreter Relationship Specialty Start Date End Date Nestor Carmen MD, MPH [address] [place] [phone] [email or web address] PCP - General Family Medicine 09/11/19 Chela Baca CNP [address] [place] [address] [address] [place] [address] [email or web address] Historical LMR Provider 04/21/17 Additional Source Comments The information contained in this document represents components of the legal health record. It is not the complete legal health record.[facility]
--- OUTSIDE RECORDS SUMMARY | 2025-03-05 11:01 | XMS_ITS | Encounter Summary ---
Author Organization [facility] Address [address] [place] [address] Phone Care Team Providers Care Director Of Cardiac Cath Lab Name Role Phone Chela Baca MIDDLE STITCHER Unavailable [phone] Shari Albert MD Unavailable [phone] Raffi Bird MD Unavailable Unavailable Nestor Carmen MD, MPH Primary Care Provider + Encounter Details Date Type Department Care Team (Latest Contact Info) Description 08/18/2020 Ancillary Orders Virtual Department [address] [place] [address] Barbara Best, YAS [address] [place] [address] [phone] [email or web address] Lumbar radiculopathy Social History Tobacco Use Types Packs/Day Years Used Date Smoking Tobacco: Never Assessed Sex and Gender Information Value Date Recorded Sex Assigned at Male 06/01/2020 6:08 PM EST Legal Sex Male 9:37 PM EDT Gender Identity Male 06/01/2020 6:08 PM EST Sexual Orientation Straight 06/01/2020 6: 08 PM EST documented as of this encounter Plan of Treatment Not on file documented as of this encounter Results * XR LUMBOSACRAL SPINE 4 OR MORE VIEWS (08/20/2020 3:31 PM EST) Anatomical Region Laterality Modality L-spine Computed Radiogr aphy 08/20/2020 3:38 PM EST Narrative 08/20/2020 3:50 PM EST TECHNIQUE: XR LUMBOSACRAL SPINE 4 OR MORE VIEWS CLINICAL HISTORY: Lower back pain. History of compression fracture 6 years prior. Lumbar radiculopathy. FINDINGS: There are 5 lumbar type non-rib bearing vertebrae. There is mild loss of height of T9-T10 to T11-T12 intervertebral disc spaces with mild vertebral endplate sclerosis and mild bony remodeling. There is mild loss of height of superior and inferior T10 vertebral endplates consistent with minimal compression deformity. There is straightening of the lumbar lordotic curvature. There is a moderately severe chronic L3 vertebral body wedge compression fracture, approximately unchanged in height since lumbar spine MRI examination dated 03/16/2017. It demonstrates minimal superior retropulsion and note is made of small to moderate-sized posterior L2-L3 and L3-L4 vertebral endplate osteophytes. There is mild L3 on L4 vertebral body retrolisthesis. Moderate L3-L4 level facet arthropathy with moderate bilateral neural foraminal narrowing. Moderate L4-L5 facet arthropathy with mild neural foraminal narrowing. L5 vertebral body demonstrates mildly biconcave vertebral endplates, probably developmental, and unchanged since the 2017 lumbar spine MRI. Moderate L5-S1 facet arthropathy with moderate bilateral neural foraminal narrowing. There are small posterior L5-S1 vertebral endplate osteophytes. Single AP view that includes SI joints demonstrate mild sclerosis of iliac aspect of both joints. CONCLUSION: Moderate severe chronic L3 vertebral body which compression fracture deformity, approximately unchanged in size since lumbar spine MRI examination dated 03/16/2017. No additional lumbar vertebral body compression fractures. There is however minimal T10 compression fracture deformity. Moderate lumbar spondylosis, with moderate L3-L4 to L5-S1 level facet arthropathy. Moderate L3-L4 and L5-S1 neural foraminal narrowing and mild L4-L5 neural foraminal narrowing. If clinically indicated MRI examination may be useful for further evaluation in this patient with provided clinical history of lumbar radiculopathy. Procedure Note Elvis Spain MD - 08/20/2020 TECHNIQUE: XR LUMBOSACRAL SPINE 4 OR MORE VIEWS CLINICAL HISTORY: Lower back pain. History of compression fracture 6 yearsprior. Lumbar radiculopathy. FINDINGS: There are 5 lumbar type non-rib bearing vertebrae. There is mild loss of height of T9-T10 to T11-T12 intervertebral discspaces with mild vertebral endplate sclerosis and mild bony remodeling.There is mild loss of height of superior and inferior T10 vertebralendplates consistent with minimal compression deformity. There is straightening of the lumbar lordotic curvature. There is a moderately severe chronic L3 vertebral body wedge compressionfracture, approximately unchanged in height since lumbar spine MRIexamination dated 03/16/2017. It demonstrates minimal superior retropulsionand note is made of small to moderate-sized posterior L2-L3 and L3-N1nhuexiykp endplate osteophytes. There is mild L3 on L4 vertebral body retrolisthesis. Moderate L3-L4 levelfacet arthropathy with moderate bilateral neural foraminal narrowing. Moderate L4-L5 facet arthropathy with mild neural foraminal narrowing. L5 vertebral body demonstrates mildly biconcave vertebral endplates,probably developmental, and unchanged since the 2017 lumbar spine MRI.Moderate L5-S1 facet arthropathy with moderate bilateral neural foraminalnarrowing. There are small posterior L5-S1 vertebral endplateosteophytes. Single AP view that includes SI joints demonstrate mild sclerosis of iliacaspect of both joints. CONCLUSION: Moderate severe chronic L3 vertebral body which compression fracturedeformity, approximately unchanged in size since lumbar spine MRIexamination dated 03/16/2017. No additional lumbar vertebral body compression fractures. There ishowever minimal T10 compression fracture deformity. Moderate lumbar spondylosis, with moderate L3-L4 to L5-S1 level facetarthropathy. Moderate L3-L4 and L5-S1 neural foraminal narrowing and mildL4-L5 neural foraminal narrowing. If clinically indicated MRI examination may be useful for furtherevaluation in this patient with provided clinical history of lumbarradiculopathy. Barbara Best NP IMG XR SPINE Final Result documented in this encounter Visit Diagnoses Diagnosis Lumbar radiculopathy Thoracic or lumbosacral neuritis or radiculitis, unspecified Lumbar radiculopathy Thoracic or lumbosacral neuritis or radiculitis, unspecified documented in this encounter Care Teams Director Of Cardiac Cath Lab Relationship Specialty Start Date End Date Nestor Carmen MD, MPH [address] [place] [address] [email or web address] PCP - General Family Medicine 09/11/19 Chela Baca, PRICILA 14 [facility] [address] [place] [phone] [email or web address] Historical LMR Provider 04/21/17 Shari Albert MD [address] [place] [address] [place] [phone] [email or web address] Historical LMR Provider 04/21/17 07/09/21 Raffi Bird MD Historical LMR Provider 04/21/17 07/09/21 documented as of this encounter Additional Source Comments The information contained in this document represents components of the legal health record. It is not the complete legal health record.[facility]
--- OUTSIDE RECORDS SUMMARY | 2025-03-05 11:01 | XMS_ITS | Encounter Summary ---
Author Organization [employer] [facility] Address [address] [place] [address] Care Team Providers Care Exposure Machine Operator Name Role Phone Unavailable Primary Care Provider Unavailabl e Encounter Details Date Type Department Care Team (Latest Contact Info) Description 09/20/2021 Abstract C CONVERSIONS Dental, Provider, DDS Social History Tobacco Use Types Packs/Day Years Used Date Smoking Tobacco: Never Assessed Sex and Gender Information Value Date Recorded Sex Assigned at Male 05/01/2022 10:34 AM EDT Legal Sex Male 10:34 AM EDT Gender Identity Male 05/01/2022 10:34 AM EDT Sexual Orientation Straight 05/01/2022 10 :34 AM EDT documented as of this encounter Plan of Treatment Not on file documented as of this encounter Visit Diagnoses Not on filedocumented in this encounter
--- OUTSIDE RECORDS SUMMARY | 2025-03-05 11:01 | XMS_ITS | Clinical Summary ---
Author Organization [employer] Address [address] [facility] 7t [place] [address] Care Team Providers Care Ditcher Operator Name Role Phone Unavailable Primary Care Provider Unavailabl e Social History Tobacco Use Types Packs/Day Years Used Date Smoking Tobacco: Never Assessed Sex and Gender Information Value Date Recorded Sex Assigned at Male 05/01/2022 10:34 AM EDT Legal Sex Male 10:34 AM EDT Gender Identity Male 05/01/2022 10:34 AM EDT Sexual Orientation Straight 05/01/2022 10 :34 AM EDT Plan of Treatment Health Maintenance Due Date Last Done Comments CT Colonography 1968 Colonoscopy 1968 Colorectal Cancer Screening 1968 Depression Screening 1968 FIT DNA/Cologuard 1968 FIT 1968 FOBT 1968 Lipid Panel 1968 Sigmoidoscopy 1968 Disability Screening 1968 Alcohol/Substance Use Screening 1980 Tobacco Screening 1980 Hepatitis B Vaccines (1 of 3 - 19+ 3-dose series) 1987 Zoster Vaccines (1 of 2) 2018 Dental X-Ray: Full Mouth 06/21/2021 06/20/2018 Pneumococcal Vaccine: 50+ Years (2 of 2 - PCV) 06/02/2022 06/02/2021 Dental Oral Exam 09/18/2022 03/20/2022, 06/20/2018 Dental Prophylaxis 09/18/2022 03/20/2022, 09/20/2021, 09/26/2018 Dental X-Ray: Bitewings 09/21/2022 09/21/19, 06/20/2018 COVID-19 Vaccine (3 - 2023-2 5 season) 2024 07/30/2020, 06/30/2020 Influenza Vaccine (#1) 2025 1, 04/19/2020, 04/09/2019 DTaP/Tdap/Td Vaccines (2 - T d or Tdap) 04/14/2029 04/14/2019 RSV Patients and Patients Aged 60 years or older (1 - 1-dose 75+ series) 2043 HIB Vaccines Aged Out No longer eligi ble based on patient's age to complete this topic HPV Vaccines Aged Out No longer eligi ble based on patient's age to complete this topic Hepatitis A Vaccines Aged Out No long er eligible based on patient's age to complete this topic IPV Vaccines Aged Out No longer eligi ble based on patient's age to complete this topic Meningococcal B Vaccine Aged Out No l onger eligible based on patient's age to complete this topic Meningococcal Vaccine Aged Out No mark maggie eligible based on patient's age to complete this topic RSV under 20 months Aged Out No longe r eligible based on patient's age to complete this topic Rotavirus Vaccines Aged Out No longer eligible based on patient's age to complete this topic Procedures Procedure Name Priority Date/Time Associated Diagnosis Comments PROPHYLAXIS - ADULT Routine 03/20/2022 1 2:00 AM EDT PERIODIC ORAL EVALUATION - ESTABLISHED PATIENT Routine 03/20/2022 12:00 AM EDT BITEWINGS - 2 RADIOGRAPHIC IMAGES Routine 09/20/2021 12:00 AM EDT INTRAORAL - COMPLETE SERIES OF RADIOGRAPHIC IMAGES Routine 06/20/2018 12:00 AM EST from Last 3 Months or Most Recently Relevant to Health Maintenance
--- OUTSIDE RECORDS SUMMARY | 2025-03-05 11:01 | XMS_ITS | Encounter Summary ---
Author Organization [facility] Address [address] [place] [address] Phone Care Team Providers Care Therapeutic Activities Services Worker Name Role Phone Chela Baca CNC MAINTENANCE MECHANIC Unavailable Shari Albert MD Unavailable [phone] Raffi Bird MD Unavailable Unavailable Unknown, Unknown Primary Care Provider Nestor Samayoa MD, MPH Primary Care Provider + Encounter Details Date Type Department Care Team (Late st Contact Info) Description 09/24/2018 Procedure Pass [facility] Endoscopy Admitting Dept Virtual Department [address] [place] [address] [phone] Social History Tobacco Use Types Packs/Day Years [...] Diagnoses Not on filedocumented in this encounter Additional Health Concerns Infection Onset Date Last Indicated Resolved Time CoV-Risk 08/02/2020 08/03/2020 08/12/2020 1:24 AM EST documented as of this encounter Care Teams Therapeutic Activities Services Worker Relationship Specialty Start Date End Date Unknown, Unknown, MD PCP - General 08/02/18 09/10/19 Nestor Carmen MD, MPH [address] [place] [address] [email or web address] PCP - General Family Medicine 09/11/19 Chela Baca CNP [address] [place] [address] [place] [address] [email or web address] Historical LMR Provider 04/21/17 Shari Albert MD [address] [place] [address] [email or web address] Historical LMR Provider 04/21/17 07/09/21 Raffi Bird MD Historical LMR Provider 04/21/17 07/09/21 documented as of this encounter Additional Source Comments The information contained in this document represents components of the legal health record. It is not the complete legal health record.[facility]
--- OUTSIDE RECORDS SUMMARY | 2025-03-05 11:01 | XMS_ITS | Encounter Summary ---
Author Organization [employer] [facility] Address [address] [facility] 7 [place] [address] Care Team Providers Care Payroll Machine Operator Name Role Phone Unavailable Primary Care Provider Unavailabl e Encounter Details Date Type Department Care Team (Latest Contact Info) Description 09/26/2018 Abstract C CONVERSIONS Dental, Provider, DDS Social [...]
--- OUTSIDE RECORDS SUMMARY | 2025-03-05 11:01 | XMS_ITS | Encounter Summary ---
Author Organization [facility] Address [address] [place] [address] Phone Care Team Providers Care Environmental Officer Name Role Phone Chela Baca PULPER Unavailable Shari Albert MD Unavailable [phone] Raffi Bird MD Unavailable Unavailable Nestor Carmen MD, MPH Primary Care Provider + Encounter Details Date Type Department Care Team (Late st Contact Info) Description 08/02/2020 Transcribe Orders Virtual Department [address] [place] [address] Ana Moncada, ENROLLMENT PROCESSOR [address] [place] [address] Fever, unspecified fever cause (Primary Dx) Social History Tobacco Use Types Packs/Day Years [...] documented as of this encounter Results * COVID-19 PCR Order (08/03/2020 10:20 AM EST) COVID Testing Status Specimen received in analyzing lab. Results should be available within 24 to 48 hrs. [facility] Symptomatic? YES [facility] 08/03/2020 10:2 0 AM EST 08/03/2020 5:09 PM EST Ana Moncada ENROLLMENT PROCESSOR BODY FLUIDS AND STOOLS ORDER LESLIE Final Result [facility] [address] [place] [address] [facility] [address] [place] [address] documented in this encounter Visit Diagnoses Diagnosis Fever, unspecified fever cause- Primary documented in this encounter Additional Health Concerns Infection Onset Date Last Indicated Resolved Time CoV-Risk 08/02/2020 08/03/2020 08/12/2020 1:24 AM EST documented as of this encounter Care Teams Environmental Officer Relationship Specialty Start Date End Date Nestor Carmen MD, MPH [address] [place] [address] [email or web address] PCP - General Family Medicine 09/11/19 Chela Baca, PRICILA 14 [facility] [address] [place] [address] Historical LMR Provider 04/21/17 Shari Albert MD [address] [place] [address] [address] [place] [address] [email or web address] Historical LMR Provider 04/21/17 07/09/21 Raffi Bird MD Historical LMR Provider 04/21/17 07/09/21 documented as of this encounter Additional Source Comments The information contained in this document represents components of the legal health record. It is not the complete legal health record.[facility]
== END 2025-03-05 10:44 | disposition home or self-care (01) ==
LOC: HO.HMCH 09:56
PROVIDERS: PCP Internal Medicine; Visit Provider Internal Medicine
DX: Z00.00 Encounter for general adult medical examination without abnormal findings (principal); J43.9 Emphysema, unspecified; S32.000S Wedge compression fracture of unspecified lumbar vertebra, sequela; N52.9 Male erectile dysfunction, unspecified; Z87.898 Personal history of other specified conditions; G47.00 Insomnia, unspecified; F17.200 Nicotine dependence, unspecified, uncomplicated; Z12.11 Encounter for screening for malignant neoplasm of colon

== ENCOUNTER → 2025-03-05 09:55 | Outpatient (BNVA) | payer OTHER, SELFPAY | PROVIDERS: PCP Internal Medicine; Visit Provider Internal Medicine | DX: Z00.00 Encounter for general adult medical examination without abnormal findings (principal); M54.50 Low back pain, unspecified; J43.9 Emphysema, unspecified; N52.9 Male erectile dysfunction, unspecified; G47.00 Insomnia, unspecified; F17.210 Nicotine dependence, cigarettes, uncomplicated; S32.000S Wedge compression fracture of unspecified lumbar vertebra, sequela; X58.XXXS Exposure to other specified factors, sequela; Z87.898 Personal history of other specified conditions | CPT/HCPCS: 96127 ==

== ENCOUNTER 2025-03-10 06:07 | Outpatient (REF) | payer OTHER, SELFPAY ==
--- NOTE | ~2025-03-10 | XR_ITS ---
EXAMINATION: XR CHEST CLINICAL INFORMATION: F17.200 - Nicotine dependence, unspecified, uncomplicated COMPARISON: None available. TECHNIQUE: 2 views of the chest were obtained. FINDINGS: Hyperinflated lungs. Pulmonary reticular pattern. Bilateral apical lung scarring. No consolidation, pleural effusion or pneumothorax. Cardiomediastinal silhouette size is small. Multilevel spondylosis. XR/XR chest 2V IMPRESSION: Consider COPD emphysematous type changes without gross acute airspace disease. Electronically signed by: Marvin Melendrez MD 03/10/2025 07:44 AM EDT
--- OUTSIDE RECORDS SUMMARY | 2025-03-10 06:10 | XMS_ITS | Clinical Summary ---
Author Organization [facility] Address [facility] [employer] [address] [address] Phone Care Team Providers Care Railroad Inspector Name Role Phone Chela Baca RUG DYER HELPER Unavailable Nestor Carmen MD, MPH Primary Care [...] down using a #11 scalpel. Using the [id number] technique, each lesion treated with liquid nitrogen [...] 52 Admit Type: Outpatient Gender: Male Room: [place] [address] Referring MD: Nestor Carmen MD Exam Type: [...] 1:22 PM Procedure Code(s): --- Professional --- 13253, Colonoscopy, flexible; with biopsy, single or multiple --- Technical --- 97827, Colonoscopy, flexible; with biopsy, single or multiple [...] or abscess without bleeding CPT copyright 2018 [employer]. All rights reserved. The codes documented in this report are preliminary and upon manager of broadcast content reviewmay be revised to meet current compliance requirements. Procedure Date: 11/30/2020 1:22:[address] [place] [address] us Nestor Carmen MD, MPH GI PROCEDURE ORDERABLES Final Result * (ABNORMAL) Lipid panel (06/28/2018 4:45 PM EST) HDL 69 mg/dL [facility] Comment: Interpretation <40 mg/dL: Low HDL cholesterol (major risk factor for CHD) Greater than or equal to 60 mg/dL: High HDL cholesterol ( negative risk factor for CHD) HDL - cholesterol is affected by a number of factors, e.g. smoking, excerise, hormones, sex and age. CHOLESTEROL 158 0 - 240 mg/dL [facility] TRIGLYCERIDES 70 30 - 160 mg/dL [facility] LDL 75 50 - 129 mg/dL [facility] Comment: LDL levels in terms of risk for coronary heart disease: <100 mg/dL: Optimal 100-129 mg/dL: Near or above optimal 130-159 mg/dL: Borderline high 160-189 mg/dL: High >190 mg/dL: Very High CARDIAC RISK RATIO 2.3(L) 3.4 - 5.0 C [facility] Blood 06/28/2018 4:45 PM EST 06/28/2018 6:34 PM EST us Chela Baca RUG DYER HELPER LAB BLOOD ORDERABLES F inal Result [address] [address] * (ABNORMAL) Comprehensive metabolic panel (06/03/2018 8:49 AM EST) SODIUM 140 133 - 146 mmol/L [facility] POTASSIUM 4.7 3.3 - 5.1 mmol/L [facility] CHLORIDE 100 96 - 108 mmol/L [facility] CO2 24 21 - 35 mmol/L [facility] BUN 9 6 - 19 mg/dL [facility] CREATININE 0.70 0.5 - 1.5 mg/dL [facility] GLUCOSE 96 70 - 99 mg/dL [facility] ALBUMIN 4.4 3.9 - 4.8 g/dL [facility] TOTAL PROTEIN 7.2 6.5 - 8.0 g/dL [facility] CALCIUM 9.4 8.4 - 10.3 mg/dL [facility] ALKALINE PHOSPHATASE 46 39 - 117 U/L [facility] TOTAL BILIRUBIN 0.4 0.0 - 1.2 mg/dL [facility] AST 26 0 - 37 U/L [facility] ALT 20 0 - 40 U/L [facility] GLOBULIN 2.8 1 - 4.8 g/dL [facility] EGFR 110 >59 mL/min/1.7 3m2 [facility] Comment:If patient is black, multiply result by 1.159. Estimated glomerular filtration rate calculated using the CKD-EPI equation. ANION GAP 21(H) 10 - 20 mmol/L [facility] Blood 06/03/2018 8:49 AM EST 06/03/2018 2:08 PM EST Chela Baca RUG DYER HELPER LAB BLOOD ORDERABLES F inal Result Performing Organization Address City/State/[facility] Co de Phone Number [address] [address] from Last 3 Months or Most Recently Relevant to Health Maintenance Insurance [facility] [address] [place] [address] [place] [place] [address] [place] [address] [place] [address] [place] [address] [place] [address] [facility] HMO Care Teams Railroad Inspector Relationship Specialty Start Date End Date Nestor Carmen MD, MPH [address] [place] [address] [email or web address] PCP - General Family Medicine 09/11/19 Chela Baca CNP [address] [place] [address] [address] [place] [address] [email or web address] Historical LMR Provider 04/21/17 Additional Source Comments The information contained in this document represents components of the legal health record. It is not the complete legal health record.[facility]
--- OUTSIDE RECORDS SUMMARY | 2025-03-10 06:10 | XMS_ITS | Encounter Summary ---
Author Organization [facility] Address [address] [place] [address] Phone Care Team Providers Care Quantitative Researcher Name Role Phone Chela Baca WEIGHBRIDGE OPERATOR Unavailable [phone] Shari Albert MD Unavailable [phone] Raffi Bird MD Unavailable Unavailable Nestor Carmen MD, MPH Primary Care Provider + Encounter Details Date Type Department Care Team (Late st Contact Info) Description 08/02/2020 Transcribe Orders Virtual Department [address] [place] [address] Ana Moncada, FUNERAL PRE ARRANGEMENT COUNSELOR [address] [place] [address] Fever, unspecified fever cause (Primary Dx) Social [...] be available within 24 to 48 hrs. [facility] Symptomatic? YES [facility] 08/03/2020 10:2 0 AM EST 08/03/2020 5:09 PM EST Ana Moncada FUNERAL PRE ARRANGEMENT COUNSELOR BODY FLUIDS AND STOOLS ORDER LESLIE Final Result [facility] [address] [place] [address] [facility] [address] [place] [address] documented in this encounter Visit Diagnoses Diagnosis Fever, unspecified fever cause- Primary documented in this encounter Additional Health Concerns Infection Onset Date Last Indicated Resolved Time CoV-Risk 08/02/2020 08/03/2020 08/12/2020 1:24 AM EST documented as of this encounter Care Teams Quantitative Researcher Relationship Specialty Start Date End Date Nestor Carmen MD, MPH [address] [place] [address] [email or web address] PCP - General Family Medicine 09/11/19 Chela Baca, PRICILA 14 [facility] [address] [place] [address] Historical LMR Provider 04/21/17 Shari Albert MD [address] [place] [address] [address] [place] [address] [email or web address] Historical LMR Provider 04/21/17 07/09/21 Raffi Bird MD Historical LMR Provider 04/21/17 07/09/21 documented as of this encounter Additional Source Comments The information contained in this document represents components of the legal health record. It is not the complete legal health record.[facility]
--- OUTSIDE RECORDS SUMMARY | 2025-03-10 06:10 | XMS_ITS | Clinical Summary ---
Author Organization [employer] Address [address] [facility] 7t [place] [address] Care Team Providers Care Coupler Name Role Phone Unavailable Primary Care Provider [...] 09/21/2022 09/21/19, 06/20/2018 COVID-19 Vaccine (3 - 2024-2 6 season) 2025 07/30/2020, 06/30/2020 Influenza Vaccine (#1) 2025 1, [...]
--- OUTSIDE RECORDS SUMMARY | 2025-03-10 06:10 | XMS_ITS | Encounter Summary ---
Author Organization [facility] Address [address] [place] [address] Phone Care Team Providers Care Biomedical Electronics Technician Name Role Phone Chela Baca GROCERY CHECKER Unavailable Shari Albert MD Unavailable [phone] Raffi Bird MD Unavailable Unavailable Nestor Carmen MD, MPH Primary Care Provider + Encounter Details Date Type Department Care Team (Latest Contact Info) Description 08/18/2020 Ancillary Orders Virtual Department [address] [place] [address] Barbara Best, YAS [address] [place] [phone] [email or web address] Lumbar radiculopathy Social History Tobacco Use Types [...] of small to moderate-sized posterior L2-L3 and L3-[id number] endplate osteophytes. There is mild L3 on [...] unspecified documented in this encounter Care Teams Biomedical Electronics Technician Relationship Specialty Start Date End Date Nestor Carmen MD, MPH [address] [place] [address] [email or web address] PCP - General Family Medicine 09/11/19 Chela Baca, PRICILA 14 [facility] [address] [place] [address] [email or web address] Historical LMR Provider 04/21/17 Shari Albert MD [address] [place] [address] [place] [address] [email or web address] Historical LMR Provider 04/21/17 07/09/21 Raffi Bird MD Historical LMR Provider 04/21/17 07/09/21 documented as of this encounter Additional Source Comments The information contained in this document represents components of the legal health record. It is not the complete legal health record.[facility]
--- OUTSIDE RECORDS SUMMARY | 2025-03-10 06:10 | XMS_ITS | Encounter Summary ---
Author Organization [employer] [facility] Address [address] [facility] 7 [place] [address] Care Team Providers Care Weigh Box Tender Name Role Phone Unavailable Primary Care Provider [...]
--- OUTSIDE RECORDS SUMMARY | 2025-03-10 06:10 | XMS_ITS | Encounter Summary ---
Author Organization [facility] Address [address] [place] [address] Phone Care Team Providers Care Telecommunications Equipment Installer Name Role Phone Chela Baca CNP Unavailable [phone] Shari Albert MD Unavailable [phone] Raffi Bird MD Unavailable Unavailable Nestor Carmen MD, MPH Primary Care Provider + Encounter Details Date Type Department Care Team (Late st Contact Info) Description 11/30/2020 Procedure Pass [facility] Endoscopy Admitting Dept Virtual Department [address] [place] [address] Social History Tobacco Use Types Packs/Day Years [...] on filedocumented in this encounter Care Teams Telecommunications Equipment Installer Relationship Specialty Start Date End Date Nestor Carmen MD, MPH [address] [place] [address] [email or web address] PCP - General Family Medicine 09/11/19 Chela Baca CNP [address] [place] [address] [address] [place] [address] [email or web address] Historical LMR Provider 04/21/17 Shari Albert MD [address] [place] [address] [address] [place] [address] [email or web address] Historical LMR Provider 04/21/17 07/09/21 Raffi Bird MD Historical LMR Provider 04/21/17 07/09/21 documented as of this encounter Additional Source Comments The information contained in this document represents components of the legal health record. It is not the complete legal health record.[facility]
--- OUTSIDE RECORDS SUMMARY | 2025-03-10 06:10 | XMS_ITS | Encounter Summary ---
Author Organization [facility] Address [address] [place] [address] Phone Care Team Providers Care Worm Picker Name Role Phone Chela Baca PHYSICAL THER Unavailable Shari Albert MD Unavailable [phone] Raffi Bird MD Unavailable Unavailable Unknown, Unknown Primary Care Provider Nestor Samayoa MD, MPH Primary Care Provider + Encounter Details Date Type Department Care Team (Late st Contact Info) Description 09/24/2018 Procedure Pass [facility] Endoscopy Admitting Dept Virtual Department [address] [place] [address] [phone] Social History Tobacco Use Types Packs/Day Years [...] documented as of this encounter Care Teams Worm Picker Relationship Specialty Start Date End Date Unknown, Unknown, MD PCP - General 08/02/18 09/10/19 Nestor Caremn MD, MPH [address] [place] [address] [email or web address] PCP - General Family Medicine 09/11/19 Chela Baca CNP [address] [place] [address] [place] [address] [email or web address] Historical LMR Provider 04/21/17 Shari Albert MD [address] [place] [address] [email or web address] Historical LMR Provider 04/21/17 07/09/21 Raffi Bird MD Historical LMR Provider 04/21/17 07/09/21 documented as of this encounter Additional Source Comments The information contained in this document represents components of the legal health record. It is not the complete legal health record.[facility]
--- OUTSIDE RECORDS SUMMARY | 2025-03-10 06:10 | XMS_ITS | Encounter Summary ---
Author Organization [employer] [facility] Address [address] [facility] 7 [place] [address] Care Team Providers Care International Coordinator Name Role Phone Unavailable Primary Care Provider [...]
[2025-03-10 06:29] LABS: MANUAL DIFF FLAG NO
[2025-03-10 07:56] LABS: Hematocrit 42.1 % (42.0-52.0); Hemoglobin 14.7 g/dl (14.0-18.0); Imm Gran Abs Auto 0.07 X10*3/uL (0.00-0.03); Imm Gran Pct Auto 0.6 % (0.0-0.4); Lymphocytes Absolute Auto 2.0 X10*3/uL (1.2-4.9); Mean Corpuscular HGB Conc 34.9 g/dl (31.0-36.0); Mean Corpuscular Hemoglobin 32.9 pg (27.0-33.0); Mean Corpuscular Volume 94.2 fL (80.0-98.0); NRBC Abs Auto 0.000 X10*3/uL (0.0-0.012); NRBC Pct Auto 0.0 /100WBC (0.0-0.2); Platelet Count 342 X10*3/uL (160-400); Red Blood Count 4.47 X10*6/uL (4.60-5.80); White Blood Count 11.2 X10*3/uL (4.8-10.8)
[2025-03-10 08:06] LABS: Hemoglobin A1C 127.1878 umol/L; Total Hemoglobin (HGBA1C) 3848.7656 umol/L
[2025-03-10 08:22] LABS: Appearance Urine Clear; Glucose Urine UA Negative (Negative); PH 5.5 (5.0-9.0); Specific Gravity - Urine 1.015 (1.005-1.025)
[2025-03-10 08:38] LABS: Alanine Aminotransferase 27 U/L (0-40); Albumin Level 4.5 g/dL (3.5-5.0); Alkaline Phosphatase 58 U/L (39-117); Anion Gap 12 (12-20); Aspartate Amino Transferase 32 U/L (5-37); Blood Urea Nitrogen 14 mg/dL (9-16); Calcium 8.8 mg/dL (8.4-10.2); Carbon Dioxide 27 mmol/L (22-29); Chloride 105 mmol/L (96-108); Cholesterol 192 mg/dL (<200); Estimated Glomerular Filt Rate > 60; HDL Cholesterol 49 mg/dL (>40); Magnesium 2.1 mg/dL (1.6-2.6); Potassium 4.4 mmol/L (3.3-5.1); Sodium 140 mmol/L (135-145); Total Protein 7.2 g/dL (6.5-8.0); Triglycerides 72 mg/dL (<150)
[2025-03-10 08:58] LABS: Folate 10.2 ng/mL (> or = 4.0); Prostate Specific Antigen 0.86 ng/mL (<0.05-4.0); Vitamin B12 655 pg/mL (200-900)
[2025-03-14 14:47] LABS: Testosterone, Free 67.6 pg/mL (35.0-155.0)
== END 2025-03-10 06:08 | disposition home or self-care (01) ==
LOC: HO.LAB 06:07
PROVIDERS: PCP Internal Medicine; Visit Provider Internal Medicine
DX: Z00.00 Encounter for general adult medical examination without abnormal findings (principal); Z12.5 Encounter for screening for malignant neoplasm of prostate; F17.200 Nicotine dependence, unspecified, uncomplicated; R05.9 Cough, unspecified; E53.8 Deficiency of other specified B group vitamins; E83.42 Hypomagnesemia; E78.00 Pure hypercholesterolemia, unspecified; R63.4 Abnormal weight loss; D64.9 Anemia, unspecified; N40.0 Benign prostatic hyperplasia without lower urinary tract symptoms; R73.01 Impaired fasting glucose; R30.0 Dysuria
CPT/HCPCS: 36415; 71046; 80053; 80061; 81003; 82306; 82607; 82746; 83036; 83735; 84153; 84402; 84403; 84443; 85025

== ENCOUNTER → 2025-03-10 06:33 | Outpatient (BNV) | payer OTHER, SELFPAY | PROVIDERS: PCP Internal Medicine; Visit Provider Radiology Diagnostic Radiology | DX: J43.9 Emphysema, unspecified (principal) | CPT/HCPCS: 71046 ==

== ENCOUNTER 2025-03-11 10:03 | Outpatient (AMB) | payer OTHER, SELFPAY ==
[2025-03-11 10:48] VITALS: BP 120/84; PULSE 76; TEMP 36.6; O2SAT 99; BMI 22.1
--- NOTE | 2025-03-11 10:48 | MHC.OFFWIV ---
Intake Vital Signs 03/11/25 10:48 Height 5 ft 9 in Weight 150 lb BMI 22.1 BP 120/84 Blood Pressure Location Lt brachial Position Sitting Pulse 76 Pulse Source Pulse Oximeter Temp 97.8 F Temp Source Oral Pulse Oximetry (%) 99 Oxygen Delivery Method Room Air Intake Visit Reasons: EP-lower back pain Intake Note: pt presents with lower back pain radiating down right leg for about a month- reports h/o chronic back pain from an injury 2010 sustained a compression fx- [place] [facility] [place] Tobacco Use Status: Current everyday Tobacco user Allergies sertraline Allergy (Severe, Verified 03/11/25 10:51) Tachycardia nicotine Allergy (Intermediate, Verified 03/11/25 10:51) sore throat morphine Allergy (Mild, Verified 03/11/25 10:51) Vomiting Medication List - Last Reconciled 03/11/25 by Noah Meza MD fluticasone propion-salmeterol 100-50 mcg/dose (Advair Diskus) 1 inh inhalation BID 30 days nicotine 1 patch transdermal DAILY 7 days nicotine 1 patch transdermal DAILY 7 days nicotine 1 patch transdermal Q24H 28 days sildenafil 50 - 100 mg (0.5 - 1 x 100 mg) PO DAILY PRN trazodone Take 1 to 2 tablets orally bedtime PRN; Ventolin HFA 90 mcg/actuation (albuterol sulfate) 2 puffs inhalation Q6H PRN NS Do you need a note to return to daycare/school/sports/work: Yes HPI EP-lower back pain HPI Details History of Present Illness The patient is a 54-year-old male presenting with lower back pain radiating down the right leg. Lower Back Pain: - Onset in 2010 following a fall from a roof, resulting in a lumbar compression fracture at L3/L4. - Persistent back pain since the injury, described as loose and unstable, causing episodes of the back locking up. - Most recent exacerbation began approximately one month ago with radiating pain down the right leg. 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 - Prior evaluation included lumbar X-ray in June 2022. - Treatment included frequent use of Ibuprofen. Sciatica: - Described as pain radiating down the right leg. - Associated with episodes of significant discomfort upon leg straightening. - Duration of approximately one month with a significant impact on daily function. Medical History: - Compression fracture in lumbar spine (L3/L4) in 2010. - Previous episodes of chronic burning pain managed with gabapentin. Medications: - Ibuprofen for pain management. 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 - Impact on work due to pain preventing sleep and functioning. Family History: - Brother diagnosed with lung cancer. Problem List - Lower Back Pain - Sciatica - History of Compression Fracture - Family History of Lung Cancer Patient Instructions - Avoid taking ibuprofen - Take prescribed medications: prednisone, diclofenac, and gabapentin 300 mg at night only - Schedule a follow-up appointment with primary care for back issues. - Consider referral to a back specialist for further evaluation. As per primary care discretion Review of Systems - General: No fever no chills - Neurological: No headaches no dizziness - Ear nose throat: No sore throat no hearing difficulty no ear pain - Cardiovascular: No syncope, no chest pain, no palpitations - Gastrointestinal: No nausea vomiting or diarrhea - Endocrine: No polyuria polydipsia no heat intolerance - Genitourinary: No dysuria , no blood in urine Physical Exam General: No acute distress HEENT: No acute findings Neck: Supple Respiratory system: Able to talk in full sentences, no audible wheeze Gastrointestinal: No pain Extremities: Right leg pain due to sciatica mildly positive straight leg sign Back no pain with percussion 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 awake oriented x3 motor intact Skin: Normal turgor PFSH Medical History History of alcohol use Smoker Benign prostatic hyperplasia with urinary frequency Erectile dysfunction COPD (chronic obstructive pulmonary disease) Benign essential hypertension Surgical History History of colonoscopy Hx of tonsillectomy Hx of appendectomy Hx of cervical discectomy Family History Brother Mental health disorder Substance use disorder Mother COPD (chronic obstructive pulmonary disease) Father Peripheral artery disease Sister Diabetes mellitus Son Diabetes mellitus Social History Housing: [facility] Alcohol intake: former Year quit: 2021 Patient Tobacco Use Status: Current everyday Tobacco user Tobacco use type: Cigarette Cigarette Packs Per Day: 1 Cigarettes Per Day: 20 e-Cigarette/Vaping Use: Never Used Second Hand Smoke Exposure: Yes service: Yes ([employer]) Current occupational status: employed Cognitive needs: No Hearing needs: No Vision needs: No Physical Exam Vital Signs: Last Vital Signs Temp 97.8 F 03/11/25 10:48 Pulse 76 03/11/25 10:48 BP 120/84 03/11/25 10:48 Pulse Ox 99 03/11/25 10:48 Oxygen Delivery Method Room Air 03/11/25 10:48 BMI result Body Mass Index 22.1 Assessment & Plan Assessment & Plan (1) Right lumbar radiculitis: Code(s): M54.16 - Radiculopathy, lumbar region (2) History of back injury: Code(s): Z87.828 - Personal history of other (healed) physical injury and trauma Plan History of Present Illness The patient is a 54-year-old male presenting with lower back pain radiating down the right leg. Lower Back Pain: - Onset in 2010 following a fall from a roof, resulting in a lumbar compression fracture at L3/L4. - Persistent back pain since the injury, described as loose and unstable, causing episodes of the back locking up. - Most recent exacerbation began approximately one month ago with radiating pain down the right leg. 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 - Prior evaluation included lumbar X-ray in June 2022. - Treatment included frequent use of Ibuprofen. Sciatica: - Described as pain radiating down the right leg. - Associated with episodes of significant discomfort upon leg straightening. - Duration of approximately one month with a significant impact on daily function. Medical History: - Compression fracture in lumbar spine (L3/L4) in 2010. - Previous episodes of chronic burning pain managed with gabapentin. Medications: - Ibuprofen for pain management. 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 - Impact on work due to pain preventing sleep and functioning. Family History: - Brother diagnosed with lung cancer. Problem List - Lower Back Pain - Sciatica - History of Compression Fracture - Family History of Lung Cancer Patient Instructions - Avoid taking ibuprofen - Take prescribed medications: prednisone, diclofenac, and gabapentin 300 mg at night only - Schedule a follow-up appointment with primary care for back issues. - Consider referral to a back specialist for further evaluation. As per primary care discretion Medications: New gabapentin 300 mg PO BEDTIME 30 caps 0RF prednisone 20 mg PO DAILY 5 tabs 0RF 5 days diclofenac sodium take it with food 75 mg PO BID 20 tabs 0RF pain 10 days Coding Level of Care Code Est Pt Level 4 (92252) Diagnoses Right lumbar radiculitis M54.16 History of back injury Z87.828
--- OUTSIDE RECORDS SUMMARY | 2025-03-11 12:11 | XMS_ITS | Encounter Summary ---
Author Organization [employer] [facility] Address [address] [facility] 7 [place] [address] Care Team Providers Care Reworker Name Role Phone Unavailable Primary Care Provider [...]
--- OUTSIDE RECORDS SUMMARY | 2025-03-11 12:11 | XMS_ITS | Clinical Summary ---
Author Organization [facility] Address [facility] [address] [address] Phone Care Team Providers Care Compression Molding Machine Operator Name Role Phone Chela Baca SURGICAL RN Unavailable Nestor Carmen MD, MPH Primary Care [...] down using a #11 scalpel. Using the riayap-tell-eidxqd technique, each lesion treated with liquid nitrogen [...] 52 Admit Type: Outpatient Gender: Male Room: [place] [address] Referring MD: Nestor Carmen MD Exam Type: [...] 1:22 PM Procedure Code(s): --- Professional --- 20411, Colonoscopy, flexible; with biopsy, single or multiple --- Technical --- 09894, Colonoscopy, flexible; with biopsy, single or multiple [...] or abscess without bleeding CPT copyright 2018 [employer]. All rights reserved. The codes documented in this report are preliminary and upon felt puller reviewmay be revised to meet current compliance requirements. Procedure Date: 11/30/2020 1:22:[address] [place] [address] us Nestor Carmen MD, MPH GI PROCEDURE [...] RISK RATIO 2.3(L) 3.4 - 5.0 C [facility] Blood 06/28/2018 4:45 PM EST 06/28/2018 6:34 PM EST us Chela Baca SURGICAL RN LAB BLOOD ORDERABLES F inal Result [address] [address] * (ABNORMAL) Comprehensive metabolic panel (06/03/2018 8:49 [...] EST 06/03/2018 2:08 PM EST Chela Baca SURGICAL RN LAB BLOOD ORDERABLES F inal Result Performing Organization Address City/State/[facility] Co de Phone Number [address] [address] from Last 3 Months or Most Recently Relevant to Health Maintenance Insurance [facility] [place] [address] [place] [address] [place] [address] [place] [address] [place] [address] [place] [address] [place] [address] [facility] [facility] [place] Address: [address] [address] Care Teams Compression Molding Machine Operator Relationship Specialty Start Date End Date Nestor Carmen MD, MPH [address] [place] [address] [email or web address] PCP - General Family Medicine 09/11/19 Chela Baca CNP [address] [place] [address] [address] [place] [address] [email or web address] Historical LMR Provider 04/21/17 Additional Source Comments The information contained in this document represents components of the legal health record. It is not the complete legal health record.[facility]
--- OUTSIDE RECORDS SUMMARY | 2025-03-11 12:11 | XMS_ITS | Clinical Summary ---
Author Organization [employer] Address [address] [facility] 7t [place] [address] Care Team Providers Care Rda Name Role Phone Unavailable Primary Care Provider [...]
--- OUTSIDE RECORDS SUMMARY | 2025-03-11 12:11 | XMS_ITS | Encounter Summary ---
Author Organization [facility] Address [address] [place] [address] Phone Care Team Providers Care Security Guard Supervisor Name Role Phone Chela Baca CNP Unavailable [phone] Shari Albert MD Unavailable [phone] Raffi Bird MD Unavailable Unavailable Nestor Carmen MD, MPH Primary Care Provider + Encounter Details Date Type Department Care Team (Late st Contact Info) Description 11/30/2020 Procedure Pass [facility] Endoscopy Admitting Dept Virtual Department [address] [place] [id number] Social History Tobacco Use Types Packs/Day Years [...] on filedocumented in this encounter Care Teams Security Guard Supervisor Relationship Specialty Start Date End Date Nestor Carmen MD, MPH [address] [place] [address] josé PCP - General Family Medicine 09/11/19 Chela Baca CNP [address] [place] [address] [address] [place] [address] [email or web address] Historical LMR Provider 04/21/17 Shari Albert MD [address] [place] [address] [address] [place] [address] [email or web address] Historical LMR Provider 04/21/17 07/09/21 Raffi Bird MD Historical LMR Provider 04/21/17 07/09/21 documented as of this encounter Additional Source Comments The information contained in this document represents components of the legal health record. It is not the complete legal health record.[facility]
--- OUTSIDE RECORDS SUMMARY | 2025-03-11 12:11 | XMS_ITS | Encounter Summary ---
Author Organization [employer] [facility] Address [address] [facility] 7 [place] [address] Care Team Providers Care Assembler Flexible Leads Name Role Phone Unavailable Primary Care Provider [...]
--- OUTSIDE RECORDS SUMMARY | 2025-03-11 12:11 | XMS_ITS | Encounter Summary ---
Author Organization [facility] Address [address] [place] [address] Phone Care Team Providers Care Border Measurer And Cutter Name Role Phone Chela Baca WHEEL BRAIDER Unavailable Shari Albert MD Unavailable [phone] Raffi Bird MD Unavailable Unavailable Nestor Carmen MD, MPH Primary Care Provider + Encounter Details Date Type Department Care Team (Latest Contact Info) Description 08/18/2020 Ancillary Orders Virtual Department [address] [place] [address] Barbara Best, YAS [address] [place] [phone] [email or web address] Lumbar radiculopathy Social History Tobacco Use Types [...] of small to moderate-sized posterior L2-L3 and L3-Q3usjgtsrvj endplate osteophytes. There is mild L3 on [...] unspecified documented in this encounter Care Teams Border Measurer And Cutter Relationship Specialty Start Date End Date Nestor Carmen MD, MPH [address] [place] [address] [email or web address] PCP - General Family Medicine 09/11/19 Chela Baca, PRICILA 14 [facility] [address] [place] [address] [email or web address] Historical LMR Provider 04/21/17 Shari Albert MD [address] [place] [address] [place] [address] [email or web address] Historical LMR Provider 04/21/17 07/09/21 Raffi Bird MD Historical LMR Provider 04/21/17 07/09/21 documented as of this encounter Additional Source Comments The information contained in this document represents components of the legal health record. It is not the complete legal health record.[facility]
--- OUTSIDE RECORDS SUMMARY | 2025-03-11 12:11 | XMS_ITS | Encounter Summary ---
Author Organization [facility] Address [address] [place] [address] Phone Care Team Providers Care Senior Bioinformatics Scientist Name Role Phone Chela Baca TELEPHONE ANSWERER Unavailable [phone] Shari Albert MD Unavailable [phone] Raffi Bird MD Unavailable Unavailable Nestor Carmen MD, MPH Primary Care Provider + Encounter Details Date Type Department Care Team (Late st Contact Info) Description 08/02/2020 Transcribe Orders Virtual Department [address] [place] [address] Ana Moncada, IRRIGATOR GRAVITY FLOW [address] [facility] [place] [address] Fever, unspecified fever cause (Primary Dx) Social [...] be available within 24 to 48 hrs. [facility] Symptomatic? YES [facility] 08/03/2020 10:2 0 AM EST 08/03/2020 5:09 PM EST Ana [email or web address] IRRIGATOR GRAVITY FLOW BODY FLUIDS AND STOOLS ORDER LESLIE Final Result [facility] [address] [place] [address] [facility] [address] [place] [address] documented in this encounter Visit Diagnoses Diagnosis Fever, unspecified fever cause- Primary documented in this encounter Additional Health Concerns Infection Onset Date Last Indicated Resolved Time CoV-Risk 08/02/2020 08/03/2020 08/12/2020 1:24 AM EST documented as of this encounter Care Teams Senior Bioinformatics Scientist Relationship Specialty Start Date End Date Nestor Carmen MD, MPH [address] [place] [address] [email or web address] PCP - General Family Medicine 09/11/19 Chela Baca, PRICILA 14 [facility] [address] [place] [address] Historical LMR Provider 04/21/17 Shari Albert MD [address] [place] [address] [place] [address] [email or web address] Historical LMR Provider 04/21/17 07/09/21 Raffi Bird MD Historical LMR Provider 04/21/17 07/09/21 documented as of this encounter Additional Source Comments The information contained in this document represents components of the legal health record. It is not the complete legal health record.[facility]
--- OUTSIDE RECORDS SUMMARY | 2025-03-11 12:11 | XMS_ITS | Encounter Summary ---
Author Organization [facility] Address [address] [place] [address] Phone Care Team Providers Care Classified Advertising Supervisor Name Role Phone Chela Baca INFERTILITY MEDICAL ASSISTANT Unavailable Shari Albert MD Unavailable [phone] Raffi Bird MD Unavailable Unavailable Unknown, Unknown Primary Care Provider Nestor Samayoa MD, MPH Primary Care Provider + Encounter Details Date Type Department Care Team (Late st Contact Info) Description 09/24/2018 Procedure Pass [facility] Endoscopy Admitting Dept Virtual Department [address] [place] [phone] Social History Tobacco Use Types Packs/Day Years [...] documented as of this encounter Care Teams Classified Advertising Supervisor Relationship Specialty Start Date End Date Unknown, Unknown, MD PCP - General 08/02/18 09/10/19 Nestor Carmen MD, MPH [address] [place] [address] [email or web address] PCP - General Family Medicine 09/11/19 Chela Baca CNP [address] [place] [address] [place] [phone] [email or web address] Historical LMR Provider 04/21/17 Shari Albert MD [address] [place] [address] [email or web address] Historical LMR Provider 04/21/17 07/09/21 Raffi Bird MD Historical LMR Provider 04/21/17 07/09/21 documented as of this encounter Additional Source Comments The information contained in this document represents components of the legal health record. It is not the complete legal health record.[facility]
== END 2025-03-11 11:03 | disposition home or self-care (01) ==
PROVIDERS: PCP Internal Medicine; Visit Provider Internal Medicine
DX: M54.16 Radiculopathy, lumbar region (principal); Z87.828 Personal history of other (healed) physical injury and trauma

== ENCOUNTER 2025-03-13 15:18 | Outpatient (AMB) | payer OTHER, SELFPAY ==
[2025-03-13 15:26] VITALS: BP 110/60; PULSE 75; RESP 18; TEMP 36.1; O2SAT 96; BMI 22.5
--- NOTE | 2025-03-13 15:26 | A.OFFPC_ITS ---
Vital Signs 03/13/25 15:26 Height 5 ft 9 in Weight 152 lb 4 oz BMI 22.5 BP 110/60 Blood Pressure Location Lt brachial Position Sitting Respiration 18 Pulse 75 Temp 96.9 F Temp Source Temporal Artery Scan Pulse Oximetry (%) 96 Oxygen Delivery Method Room Air Intake Visit Reasons: Back pain [employer] Hrms Developer Required: No Accompanied by: Self / Same As Patient Allergies sertraline Allergy (Severe, Verified 03/13/25 15:50) Tachycardia nicotine Allergy (Intermediate, Verified 03/13/25 15:50) sore throat morphine Allergy (Mild, Verified 03/13/25 15:50) Vomiting Medication List - Last Reconciled 03/13/25 by JULY Rivera diclofenac sodium 75 mg PO BID 10 days fluticasone propion-salmeterol 100-50 mcg/dose (Advair Diskus) 1 inh inhalation BID 30 days gabapentin 300 mg PO BEDTIME nicotine 1 patch transdermal DAILY 7 days nicotine 1 patch transdermal DAILY 7 days nicotine 1 patch transdermal Q24H 28 days prednisone 20 mg PO DAILY 5 days sildenafil 50 - 100 mg (0.5 - 1 x 100 mg) PO DAILY PRN trazodone Take 1 to 2 tablets orally bedtime PRN; Ventolin HFA 90 mcg/actuation (albuterol sulfate) 2 puffs inhalation Q6H PRN NS Tobacco use date assessed: 03/13/25 Dental Screening Dental Screen Date: 03/13/25 Did you have a dental visit in the last 12 months?: Yes Did you have a dental problem in the last 6 months where you did not have access to dental care?: No Was dental information given to patient?: Patient has dentist HPI Back pain HPI Details The patient is a 54-year-old male presenting with chronic back pain. He has a history of a compression fracture leading to persistent back pain and instability, now with sciatica symptoms radiating down the right leg. Recently, he received medication from a walk-in clinic that provided relief, and an x-ray was conducted with a potential MRI planned for further assessment. The patient also reports symptoms of Chronic Obstructive Pulmonary Disease (COPD), attributed to long-term smoking. He has smoked for most of his life, with a 10-year break, and is now trying to quit using nicotine patches. [facility] Medical History History of alcohol use Smoker Benign prostatic hyperplasia with urinary frequency Erectile dysfunction COPD (chronic obstructive pulmonary disease) Benign essential hypertension Surgical History History of colonoscopy Hx of tonsillectomy Hx of appendectomy Hx of cervical discectomy Family History Brother Mental health disorder Substance use disorder Mother COPD (chronic obstructive pulmonary disease) Father Peripheral artery disease Sister Diabetes mellitus Son Diabetes mellitus Social History [facility] Alcohol intake: former Year quit: 2021 Patient Tobacco Use Status: Current everyday Tobacco user Tobacco use type: Cigarette Cigarette Packs Per Day: 1 Cigarettes Per Day: 20 e-Cigarette/Vaping Use: Never Used Second Hand Smoke Exposure: Yes service: Yes ([employer]) Current occupational status: employed Cognitive needs: No Hearing needs: No Vision needs: No Questionnaire PHQ-9 Over the last 2 weeks, how often have you been bothered by any of the following problems? 1. Little interest or pleasure in doing things: several days 2. Feeling down, depressed, or hopeless: not at all 3. Trouble falling or staying asleep, or sleeping too much: several days 4. Feeling tired or having little energy: nearly every day 5. Poor appetite or overeating: nearly every day 6. Feeling bad about yourself - or that you are a failure or have let yourself or your family down: not at all 7. Trouble concentrating on things, such as reading the newspaper or watching television: not at all 8. Moving or speaking so slowly that other people could have noticed. Or the opposite - being so fidgety or restless that you have been moving around a lot more than usual: not at all 9. Thoughts that you would be better off or of hurting yourself in some way: not at all Total score: 8 Depression Screening Interpretation: Positive Depression Screening Follow-up: Existing condition and Follow-up Visit Requested Depression Screening Done: Yes Source: Developed by Drs. Nixon Moreau, Abigail Philip, Peter Peña and colleagues, with an educational tone from [employer] Thrive Questionnaire Date Thrive assessed: 03/13/25 I am a: Patient What is your living situation today?: I have a steady place to live Within the past 12 months, did the food you bought not last and you didn't have the money to get more?: Never true Within the past 12 months, did you worry whether your food would run out before you got money to buy more?: Never true Do you have trouble paying for medicines?: No Do you have trouble getting transportation to medical appointments?: No Do you have trouble paying your heating and electricity bill?: No Do you have trouble taking care of your child, family member or friend?: No Do you have trouble with day-to-day activities such as bathing, preparing meals, shopping, managing finances, etc.?: No Are you currently unemployed and looking for a job?: No Are you interested in more education?: I choose not to answer this question Please select the resources that you would like help with: None Currently or been in a relationship where the following occur: I choose not to answer THRIVE Score: 0 AUDIT C Alcohol Use Questionnaire (AUDIT-C) 1. How often do you have a drink containing alcohol?: Never 3. How often do you have six or more drinks on one occasion?: Never Total Score: 0 Score Reviewed/Action Taken: Yes ZAK-7 AMB Questionnaire ZAK-7 Date ZAK - 7 assessed: 03/13/25 Feeling nervous, anxious, or on edge: 1 = Several days Not being able to stop or control worryin = Several days Worrying too much about different things: 0 = Not at all Trouble relaxin = Several days Being so restless that it is hard to sit still: 1 = Several days Becoming easily annoyed or irritable: 1 = Several days Feeling afraid as if something awful might happen: 0 = Not at all Total ZAK-7 score (0-4 normal; 5-9 mild; 10-14 moderate; 15-21 severe): 5 Source: Developed by Drs. Nixon Moreau, Abigail Philip, Peter Peña and colleagues, with an educational tone from [employer]. Review of Systems Const Denies body aches, Denies chills, Denies fever(s), Denies headache(s) and Denies poor appetite Eyes Reports no additional complaints ENT Denies dysphagia, Denies dizziness, Denies headache(s) and Denies odynophagia Card Denies chest pain, Denies syncope, Denies edema, Denies irregular heart rhythm, Denies lightheadedness and Denies dyspnea Resp Denies cough and Denies dyspnea GI Denies abdominal pain, Denies constipation, Denies dysphagia, Denies diarrhea, Denies nausea, Denies odynophagia and Denies vomiting Reports no additional complaints Musc Reports back pain and Reports radiating pain into limb (Right side) Skin/Breast Reports system reviewed and no additional complaints, except as documented Neuro Denies Abnormal speech present, Denies dizziness, Denies syncope and Denies headache(s) Psych Reports no additional complaints Physical exam (Primary Care) Vital Signs: Last Vital Signs Temp 96.9 F 03/13/25 15:26 Pulse 75 03/13/25 15:26 Resp 18 03/13/25 15:26 BP 110/60 03/13/25 15:26 Pulse Ox 96 03/13/25 15:26 Oxygen Delivery Method Room Air 03/13/25 15:26 BMI result Body Mass Index 22.5 Tobacco/Smoking Status: Tobacco use Status Tobacco use date assessed 03/13/25 03/13/25 15:33 Patient Tobacco Use Status Current everyday Tobacco 03/13/25 15:33 Tobacco use type Cigarette 03/13/25 15:33 e-Cigarette/Vaping Use Never Used 03/13/25 15:33 PHQ-9: PHQ-9 Score PHQ-9: Total score 8 03/15/25 01:10 Depression Screening Interpretation: Positive Depression Screening Follow-up: Existing condition and Follow-up Visit Requested Thrive Assessment: Date of Thrive Assessment Date Thrive assessed 03/13/25 03/13/25 15:33 Currently or been in a relationship where the following occur: I choose not to answer Const General: healthy appearing, no acute distress, alert and awake Nutritional Appearance: well nourished Orientation/consciousness: oriented to person, oriented to place and oriented to time HENMT Ears: TM's normal bilaterally General nose exam: Normal nasal mucous membranes and turbinates present Eyes Conjunctivae: conjunctivae normal Sclerae: sclerae normal Pupils: Equal, round and reactive pupils present Neck Neck: Yes no lymphadenopathy and Yes no JVD Thyroid: Thyroid normal Carotids: no bruits Resp Auscultation: no crackles, no rales, no rhonchi and wheezes expiratory wheezes and upper bilaterally Cardio Rate: regular rate Rhythm: regular rhythm Heart sounds: no murmurs and normal S1 and S2 GI Palpation (GI): Soft to palpation, nontender, no hepatomegaly and no splenomegaly Auscultation: normal bowel sounds General: Yes no CVA tenderness Back/Spine/Pelvis Back: no CVA tenderness Thoracic/Lumbar Spine: No lumbar spinal tenderness and straight leg raise positive right at 40 degrees Skin General skin exam: no rashes or lesions noted and dry skin Neuro General: oriented to person, oriented to place and oriented to time Cranial nerves: Yes Equal, round and reactive pupils present Speech: No Abnormal speech present Gait exam (Neuro): Normal gait present Motor exam (neuro): no tremor noted Extrem Right upper extremity: full ROM Left upper extremity: full ROM Right lower extremity: full ROM; no edema Left lower extremity: full ROM; no edema Psych Mental Status: mental status grossly normal Speech and movement: Normal speech and movement present Affect: normal affect Attitude: cooperative Thought process: Normal thought process present Coding Level of Care Code Est Pt Level 3 (15571) Diagnoses Compression fracture of lumbar vertebra, unspecified lumbar vertebral level, sequela S32.000S Encounter type: sequela Lumbar vertebra fracture level: unspecified lumbar vertebra Right lumbar radiculitis M54.16 Pulmonary emphysema, unspecified emphysema type J43.9 COPD type: emphysema Emphysema type: unspecified Smoker F17.200 Time Spent (min) 33 Assessment & Plan Assessment & Plan (1) Compression fx, lumbar spine: Comment: injury occurred when he fell from roof years ago Code(s): S32.000A - Wedge compression fracture of unspecified lumbar vertebra, initial encounter for closed fracture Category: Medical Qualifiers: Encounter type: sequela Lumbar vertebra fracture level: unspecified lumbar vertebra Qualified Code(s): S32.000S - Wedge compression fracture of unspecified lumbar vertebra, sequela (2) Right lumbar radiculitis: Code(s): M54.16 - Radiculopathy, lumbar region Category: Medical (3) COPD (chronic obstructive pulmonary disease): Code(s): J44.9 - Chronic obstructive pulmonary disease, unspecified Category: Medical Qualifiers: COPD type: emphysema Emphysema type: unspecified Qualified Code(s): J43.9 - Emphysema, unspecified (4) Smoker: Code(s): F17.200 - Nicotine dependence, unspecified, uncomplicated Category: Social Hx Plan Plan Patient was informed and verbally consented to the use of an ambient scribe for clinic note documentation during this visit. 1. Compression Fracture The patient will undergo an x-ray to evaluate the current status of the compression fracture and determine the need for further imaging such as an MRI. 2. Chronic Back Pain The patient has been prescribed medication that has provided significant relief from chronic back pain. 3. Sciatica The sciatica symptoms are being monitored, and further imaging may be considered based on the x-ray results. 4. Chronic Obstructive Pulmonary Disease (Copd) The patient is advised to use an inhaler to manage COPD symptoms and is encouraged to quit smoking using nicotine patches. Inhalers Rx refilled. 5. Nicotine Dependence The patient is attempting to quit smoking and plans to use nicotine patches as part of the cessation strategy. Orders: Orders XR lumbar spine 2-3V 03/13/25 S32.000S - Wedge compression fracture of unspecified lumbar vertebra, sequela Medications: Refilled Ventolin HFA 90 mcg/actuation (albuterol sulfate) 2 puffs inhalation Q6H PRN 18 grams 5RF shortness of breath or wheezing NS fluticasone propion-salmeterol 100-50 mcg/dose (Advair Diskus) 1 inh inhalation BID 30 days 60 ea 5RF fluticasone propion-salmeterol 100-50 mcg/dose (Advair Diskus) 1 inh inhalation BID 60 ea 5RF 30 days Ventolin HFA 90 mcg/actuation (albuterol sulfate) 2 puffs inhalation Q6H PRN 18 grams 5RF shortness of breath or wheezing NS
--- OUTSIDE RECORDS SUMMARY | 2025-03-13 17:39 | XMS_ITS | Clinical Summary ---
Author Organization [facility] Address [facility] [employer] [address] [address] Phone Care Team Providers Care Electronic Musical Instrument Repairer Name Role Phone Chela Baca APPLIANCE LINE ASSEMBLER Unavailable Nestor Carmen MD, MPH Primary Care [...] down using a #11 scalpel. Using the xwcnqo-qnen-hypbcu technique, each lesion treated with liquid nitrogen [...] 52 Admit Type: Outpatient Gender: Male Room: [place] [address] Referring MD: Nestor Carmen MD Exam Type: [...] 1:22 PM Procedure Code(s): --- Professional --- 96608, Colonoscopy, flexible; with biopsy, single or multiple --- Technical --- 95117, Colonoscopy, flexible; with biopsy, single or multiple [...] or abscess without bleeding CPT copyright 2018 [employer]. All rights reserved. The codes documented in this report are preliminary and upon supervisor beam department reviewmay be revised to meet current compliance requirements. Procedure Date: 11/30/2020 1:22:[address] [place] [id number] us Nestor Carmen MD, MPH GI PROCEDURE ORDERABLES Final Result * (ABNORMAL) Lipid panel (06/28/2018 4:45 PM EST) HDL 69 mg/dL [facility] Comment: Interpretation <40 mg/dL: Low HDL cholesterol (major risk factor for CHD) Greater than or equal to 60 mg/dL: High HDL cholesterol ( negative risk factor for CHD) HDL - cholesterol is affected by a number of factors, e.g. smoking, excerise, hormones, sex and age. CHOLESTEROL 158 0 - 240 mg/dL [facility] TRIGLYCERIDES 70 30 - 160 mg/dL [facility] LDL 75 50 - 129 mg/dL [facility] Comment: LDL levels in terms of risk for coronary heart disease: <100 mg/dL: Optimal 100-129 mg/dL: Near or above optimal 130-159 mg/dL: Borderline high 160-189 mg/dL: High >190 mg/dL: Very High CARDIAC RISK RATIO 2.3(L) 3.4 - 5.0 [facility] Blood 06/28/2018 4:45 PM EST 06/28/2018 6:34 PM EST us Chela Baca APPLIANCE LINE ASSEMBLER LAB BLOOD ORDERABLES F inal Result [address] [address] * (ABNORMAL) Comprehensive metabolic panel (06/03/2018 8:49 AM EST) SODIUM 140 133 - 146 mmol/L [facility] POTASSIUM 4.7 3.3 - 5.1 mmol/L [facility] CHLORIDE 100 96 - 108 mmol/L [facility] CO2 24 21 - 35 mmol/L [facility] BUN 9 6 - 19 mg/dL [facility] CREATININE 0.70 0.5 - 1.5 mg/dL [facility] GLUCOSE 96 70 - 99 mg/dL [facility] ALBUMIN 4.4 3.9 - 4.8 g/dL [facility] TOTAL PROTEIN 7.2 6.5 - 8.0 g/dL [facility] CALCIUM 9.4 8.4 - 10.3 mg/dL [facility] ALKALINE PHOSPHATASE 46 39 - 117 U/L [facility] TOTAL BILIRUBIN 0.4 0.0 - 1.2 mg/dL [facility] AST 26 0 - 37 U/L [facility] ALT 20 0 - 40 U/L [facility] GLOBULIN 2.8 1 - 4.8 g/dL [facility] EGFR 110 >59 mL/min/1.7 3m2 [facility] Comment:If patient is black, multiply result by 1.159. Estimated glomerular filtration rate calculated using the CKD-EPI equation. ANION GAP 21(H) 10 - 20 mmol/L [facility] Blood 06/03/2018 8:49 AM EST 06/03/2018 2:08 PM EST Chela Baca APPLIANCE LINE ASSEMBLER LAB BLOOD ORDERABLES F inal Result Performing Organization Address City/State/[facility] Co de Phone Number [address] [address] from Last 3 Months or Most Recently Relevant to Health Maintenance Insurance [facility] [address] [place], [place] [address] [place] [address] [place] [place] [address] [place] [address] [place] [address] [place] [address] Care Teams Electronic Musical Instrument Repairer Relationship Specialty Start Date End Date Nestor Carmen MD, MPH [address] [place] [phone] josé PCP - General Family Medicine 09/11/19 Chela Baca CNP [address] [place] [address] [address] [place] [address] Historical LMR Provider 04/21/17 Additional Source Comments The information contained in this document represents components of the legal health record. It is not the complete legal health record.[facility]
--- OUTSIDE RECORDS SUMMARY | 2025-03-13 17:39 | XMS_ITS | Encounter Summary ---
Author Organization [employer] [facility] Address [address] [facility] 7 [place] [address] Care Team Providers Care Radio Division Officer Name Role Phone Unavailable Primary Care Provider [...]
--- OUTSIDE RECORDS SUMMARY | 2025-03-13 17:39 | XMS_ITS | Encounter Summary ---
Author Organization [facility] Address [address] [place] [address] Phone Care Team Providers Care Food Equipment Service Technician Name Role Phone Chela Baca SALESFORCE TRAINER Unavailable Shari Albert MD Unavailable [phone] Raffi Bird MD Unavailable Unavailable Nestor Carmen MD, MPH Primary Care Provider + Encounter Details Date Type Department Care Team (Latest Contact Info) Description 08/18/2020 Ancillary Orders Virtual Department [address] [place] [address] Barbara Best, YAS [address] [place] [address] [phone] [email or web address] Lumbar radiculopathy Social History Tobacco Use Types [...] of small to moderate-sized posterior L2-L3 and L3-H3nqldldoex endplate osteophytes. There is mild L3 on [...] unspecified documented in this encounter Care Teams Food Equipment Service Technician Relationship Specialty Start Date End Date Nestor Carmen MD, MPH [address] [place] [address] [email or web address] PCP - General Family Medicine 09/11/19 Chela Baca, PRICILA [address] [facility] [address] [place] [address] [email or web address] Historical LMR Provider 04/21/17 Shari Albert MD [address] [place] [address] [place] [phone] [email or web address] Historical LMR Provider 04/21/17 07/09/21 Raffi Bird MD Historical LMR Provider 04/21/17 07/09/21 documented as of this encounter Additional Source Comments The information contained in this document represents components of the legal health record. It is not the complete legal health record.[facility]
--- OUTSIDE RECORDS SUMMARY | 2025-03-13 17:39 | XMS_ITS | Encounter Summary ---
Author Organization [employer] [facility] Address [address] [place] [address] Phone Care Team Providers Care Tile Finisher Name Role Phone Chela Baca RADIO COMMUNICATIONS MECHANICIAN Unavailable Shari Albert MD Unavailable [phone] Raffi Bird MD Unavailable Unavailable Unknown, Unknown Primary Care Provider Nestor Samayoa MD, MPH Primary Care Provider + Encounter Details Date Type Department Care Team (Late st Contact Info) Description 09/24/2018 Procedure Pass [facility] Endoscopy Admitting Dept Virtual Department [address] [place] [phone] [phone] Social History Tobacco Use Types Packs/Day Years [...] documented as of this encounter Care Teams Tile Finisher Relationship Specialty Start Date End Date Unknown, Unknown, MD PCP - General 08/02/18 09/10/19 Nestor Carmen MD, MPH [address] [place] [address] [email or web address] PCP - General Family Medicine 09/11/19 Chela Baca CNP [address] [place] [address] [place] [phone] [email or web address] Historical LMR Provider 04/21/17 Shari Albert MD [address] [place] [phone] [email or web address] Historical LMR Provider 04/21/17 07/09/21 Raffi Bird MD Historical LMR Provider 04/21/17 07/09/21 documented as of this encounter Additional Source Comments The information contained in this document represents components of the legal health record. It is not the complete legal health record.[facility]
--- OUTSIDE RECORDS SUMMARY | 2025-03-13 17:39 | XMS_ITS | Clinical Summary ---
Author Organization [employer] Address [address] [facility] 7t [place] [address] Care Team Providers Care Professional Skateboarder Name Role Phone Unavailable Primary Care Provider [...]
--- OUTSIDE RECORDS SUMMARY | 2025-03-13 17:39 | XMS_ITS | Encounter Summary ---
Author Organization [facility] Address [address] [place] [address] Phone Care Team Providers Care Sound Truck Operator Name Role Phone Chela Baca CNP Unavailable [phone] Shari Albert MD Unavailable [phone] Raffi Bird MD Unavailable Unavailable Nestor Carmen MD, MPH Primary Care Provider + Encounter Details Date Type Department Care Team (Late st Contact Info) Description 11/30/2020 Procedure Pass [facility] Endoscopy Admitting Dept Virtual Department [address] [place] [phone] Social History Tobacco Use Types Packs/Day Years [...] on filedocumented in this encounter Care Teams Sound Truck Operator Relationship Specialty Start Date End Date Nestor Carmen MD, MPH [address] [place] [address] josé PCP - General Family Medicine 09/11/19 Chela Baca CNP [address] [place] [address] [address] [place] [address] [email or web address] Historical LMR Provider 04/21/17 Shari Albert MD [address] [place] [address] [address] [place] [address] [email or web address] Historical LMR Provider 04/21/17 07/09/21 Raffi Bird MD Historical LMR Provider 04/21/17 07/09/21 documented as of this encounter Additional Source Comments The information contained in this document represents components of the legal health record. It is not the complete legal health record.[facility]
--- OUTSIDE RECORDS SUMMARY | 2025-03-13 17:39 | XMS_ITS | Encounter Summary ---
Author Organization [facility] Address [address] [place] [address] Phone Care Team Providers Care Re Examiner Name Role Phone Cehla Baca ELECTRICIAN TELEPHONE Unavailable [phone] Shari Albert MD Unavailable [phone] Raffi Bird MD Unavailable Unavailable Nestor Carmen MD, MPH Primary Care Provider + Encounter Details Date Type Department Care Team (Late st Contact Info) Description 08/02/2020 Transcribe Orders Virtual Department [address] [place] [address] Ana Moncada, CAN CARRIER [address] [facility] [address] Fever, unspecified fever cause (Primary Dx) Social [...] be available within 24 to 48 hrs. [facility] Symptomatic? YES [facility] 08/03/2020 10:2 0 AM EST 08/03/2020 5:09 PM EST Ana Moncada CAN CARRIER BODY FLUIDS AND STOOLS ORDER LESLIE Final Result [facility] [address] [place] [address] [facility] [address] [place] [address] documented in this encounter Visit Diagnoses Diagnosis Fever, unspecified fever cause- Primary documented in this encounter Additional Health Concerns Infection Onset Date Last Indicated Resolved Time CoV-Risk 08/02/2020 08/03/2020 08/12/2020 1:24 AM EST documented as of this encounter Care Teams Re Examiner Relationship Specialty Start Date End Date Nestor Carmen MD, MPH [address] [place] [address] [email or web address] PCP - General Family Medicine 09/11/19 Chela Baca, PRICILA 14 [facility] [address] [place] [address] Historical LMR Provider 04/21/17 Shari Albert MD [address] [place] [address] [address] [place] [address] [email or web address] Historical LMR Provider 04/21/17 07/09/21 Raffi Bird MD Historical LMR Provider 04/21/17 07/09/21 documented as of this encounter Additional Source Comments The information contained in this document represents components of the legal health record. It is not the complete legal health record.[facility]
--- OUTSIDE RECORDS SUMMARY | 2025-03-13 17:39 | XMS_ITS | Encounter Summary ---
Author Organization [employer] [facility] Address [address] [facility] 7 [place] [address] Care Team Providers Care Technical Solutions Consultant Name Role Phone Unavailable Primary Care Provider [...]
== END 2025-03-13 16:04 | disposition home or self-care (01) ==
LOC: HO.HMCH 15:18
PROVIDERS: PCP Internal Medicine
DX: S32.000S Wedge compression fracture of unspecified lumbar vertebra, sequela (principal); M54.16 Radiculopathy, lumbar region; J43.9 Emphysema, unspecified; F17.200 Nicotine dependence, unspecified, uncomplicated

== ENCOUNTER 2025-03-13 15:18 | Outpatient (REF) | payer OTHER, SELFPAY ==
--- NOTE | ~2025-03-13 | XR_ITS ---
EXAMINATION: XR LUMBOSACRAL SPINE CLINICAL INFORMATION: M54.50 - Low back pain, unspecified COMPARISON: 06/03/2022 TECHNIQUE: Three views of the lumbosacral spine. FINDINGS: There are 5 nonrib-bearing lumbar segments. There is chronic moderate superior endplate compression fracture of L3. There is chronic grade 1 retrolisthesis at L2-4. There are stable degenerative changes most advanced at L2-3 and L3-4. XR/XR lumbar spine 2-3V IMPRESSION: Stable moderate superior endplate compression fracture of L3. Stable degenerative changes Electronically signed by: Rupesh Grissom MD 03/13/2025 05:14 PM EDT
== END 2025-03-13 15:19 | disposition home or self-care (01) ==
LOC: HO.XRAY 15:18
PROVIDERS: Absent Provider Internal Medicine; PCP Internal Medicine
DX: M54.50 Low back pain, unspecified (principal); M54.16 Radiculopathy, lumbar region; J43.9 Emphysema, unspecified; S32.000S Wedge compression fracture of unspecified lumbar vertebra, sequela; F17.210 Nicotine dependence, cigarettes, uncomplicated
CPT/HCPCS: 72100

== ENCOUNTER → 2025-03-13 16:12 | Outpatient (BNV) | payer OTHER, SELFPAY | PROVIDERS: Absent Provider Internal Medicine; PCP Internal Medicine; Visit Provider Radiology Diagnostic Radiology | DX: M48.56XA Collapsed vertebra, not elsewhere classified, lumbar region, initial encounter for fracture (principal) | CPT/HCPCS: 72100 ==

== ENCOUNTER 2025-06-09 16:49 | Outpatient (AMB) | payer OTHER, SELFPAY ==
--- NOTE | 2025-06-09 16:52 | A.OFFPC_ITS ---
Vital Signs 06/09/25 16:54 Height 5 ft 9 in Weight 157 lb 8 oz BMI 23.3 BP 128/76 Blood Pressure Location Lt brachial Position Sitting Pulse 71 Pulse Source Pulse Oximeter Temp 97.1 F Temp Source Temporal Artery Scan Pulse Oximetry (%) 96 Oxygen Delivery Method Room Air Intake Visit Reasons: 3 month f/u Intake Note: Patient is here to follow up on BPH, COPD, HTN. Railway Signalling Engineer Required: No Driftman: Not Required per policy Accompanied by: Self / Same As Patient Allergies sertraline Allergy (Severe, Verified 06/09/25 17:06) Tachycardia nicotine Allergy (Intermediate, Verified 06/09/25 17:06) sore throat morphine Allergy (Mild, Verified 06/09/25 17:06) Vomiting Medication List - Last Reconciled 06/09/25 by Car Wolfe MD albuterol sulfate 90 mcg/actuation 2 inhalations inhalation Q4-6H PRN diclofenac sodium 75 mg PO BID PRN 15 days fluticasone propion-salmeterol 100-50 mcg/dose (Advair Diskus) 1 inh inhalation BID 30 days gabapentin 300 mg PO BEDTIME nicotine 1 patch transdermal DAILY 7 days nicotine 1 patch transdermal Q24H 28 days sildenafil 50 - 100 mg (0.5 - 1 x 100 mg) PO DAILY PRN Tobacco use date assessed: 06/09/25 Dental Screening Dental Screen Date: 03/13/25 HPI 3 month f/u HPI Details Patient is a 55 year old male presenting with a follow-up visit to review lab results and discuss his chronic lower back pain. He has a history of a compression fracture in his back from an injury a few years ago, which is described as stable but he describes (+) chronic pain over his lower back and a recurrent sensation of his spine shifting or slipping out of place, causing a 'jumping' sensation He experiences periods of agony for days and believes the back issue may be the cause of his sciatica. Previously, when he could not walk due to the pain, he was treated by an on-call provider with a combination of prednisone, gabapentin, and diclofenac He continues to take gabapentin and diclofenac, and reports that the pain returns if he deviates from this regimen and he would like to know if there is anything that can be done at present to keep him from experiencing the pain that he gets in his lower back as much as possible States that he does not do a lot anymore in terms of heavy physical activity or lifting but he can just so much as turn the wrong way and he will be in a lot of pain for at least a few days He would like to know that if necessary, if he can call for Rx for a short course of prednisone again if his back were to flare up suddenly Regarding his labs from March 2025, his total cholesterol has improved from 216 to 192, and his LDL cholesterol has decreased from 155 to 129. His blood count, kidney function, liver function, calcium, magnesium, vitamin B12, vitamin D, thyroid, and testosterone levels were all normal. His hemoglobin A1c is normal at 5.3, although a recent sugar reading was slightly elevated, which may have been related to prednisone use. He denies any headaches or dizziness Denies any chest pains, no increased SOB No nausea/vomiting, no abdominal pain No change in bowel habits noted Needs his Sildenafil Rx refilled, as well as his Gabaoentin if he is to continue on it [facility] Medical History (Updated 06/09/25 @ 23:21 by Car Wolfe MD) Impaired fasting glucose Pure hypercholesterolemia Lumbar degenerative disc disease Nicotine dependence, cigarettes, uncomplicated History of alcohol use Benign prostatic hyperplasia with urinary frequency Erectile dysfunction COPD (chronic obstructive pulmonary disease) Benign essential hypertension Surgical History History of colonoscopy Hx of tonsillectomy Hx of appendectomy Hx of cervical discectomy Family History Brother Mental health disorder Substance use disorder Mother COPD (chronic obstructive pulmonary disease) Father Peripheral artery disease Sister Diabetes mellitus Son Diabetes mellitus Social History (Updated 06/09/25 @ 16:58 by LUCIAN Serrano) Housing: Condominium Alcohol intake: former Year quit: 2021 Patient Tobacco Use Status: Current everyday Tobacco user Tobacco use type: Cigarette Cigarette Packs Per Day: 0.5 Cigarettes Per Day: 10 e-Cigarette/Vaping Use: Never Used Second Hand Smoke Exposure: Yes service: Yes ([employer]) Current occupational status: employed Cognitive needs: No Hearing needs: No Vision needs: No Questionnaire Thrive Questionnaire Date Thrive assessed: 03/13/25 I am a: Patient What is your living situation today?: I have a steady place to live Within the past 12 months, did the food you bought not last and you didn't have the money to get more?: Never true Within the past 12 months, did you worry whether your food would run out before you got money to buy more?: Never true Do you have trouble paying for medicines?: No Do you have trouble getting transportation to medical appointments?: No Do you have trouble paying your heating and electricity bill?: No Do you have trouble taking care of your child, family member or friend?: No Do you have trouble with day-to-day activities such as bathing, preparing meals, shopping, managing finances, etc.?: No Are you currently unemployed and looking for a job?: No Are you interested in more education?: I choose not to answer this question Please select the resources that you would like help with: None Currently or been in a relationship where the following occur: I choose not to answer THRIVE Score: 0 ZAK-7 AMB Questionnaire ZAK-7 Date ZAK - 7 assessed: 03/13/25 Source: Developed by Drs. Nixon Moreau, Abigail Philip, Peter Peña and colleagues, with an educational tone from [employer]. Review of Systems Const Denies chills, Denies fatigue, Denies fever(s) and Denies headache(s) ENT Denies dysphagia, Denies dizziness, Denies otalgia, Denies headache(s), Denies neck pain, Denies odynophagia and Denies sore throat Card Denies chest pain, Denies rapid heart rate, Denies irregular heart rhythm, Denies palpitations and Denies dyspnea Resp Denies chest congestion, Denies cough, Denies dyspnea and Denies wheezing GI Denies abdominal pain, Denies constipation, Denies dysphagia, Denies heartburn, Denies diarrhea, Denies nausea, Denies odynophagia and Denies vomiting Denies difficulty urinating, Denies dysuria and Denies urinary frequency Musc Reports back pain (over the lower back - chronic / recurrent), Denies arthralgias and Denies neck pain Skin/Breast Denies rash Neuro Denies dizziness, Denies headache(s) and Denies paresthesias Endo Denies fatigue and Denies palpitations Aller/Immun Denies wheezing Physical exam (Primary Care) Vital Signs: Last Vital Signs Temp 97.1 F 06/09/25 16:54 Pulse 71 06/09/25 16:54 BP 128/76 06/09/25 16:54 Pulse Ox 96 06/09/25 16:54 Oxygen Delivery Method Room Air 06/09/25 16:54 BMI result Body Mass Index 23.3 Tobacco/Smoking Status: Tobacco use Status Tobacco use date assessed 06/09/25 06/09/25 16:59 Patient Tobacco Use Status Current everyday Tobacco 06/09/25 16:58 Tobacco use type Cigarette 06/09/25 16:58 e-Cigarette/Vaping Use Never Used 06/09/25 16:58 Thrive Assessment: Date of Thrive Assessment Date Thrive assessed 03/13/25 06/09/25 16:53 Currently or been in a relationship where the following occur: I choose not to answer Const General: no acute distress and alert HENMT Ears: TM's normal bilaterally and EAC's normal Throat: Yes posterior oropharynx normal and Yes tonsils normal (no TP congestion) Neck Neck: Yes supple and No lymphadenopathy Thyroid: Thyroid normal Resp Auscultation: clear to auscultation bilaterally, no rales and no wheezes Cardio Rate: regular rate Rhythm: regular rhythm Heart sounds: no murmurs GI Palpation (GI): Soft to palpation and nontender Auscultation: normal bowel sounds General: Yes no CVA tenderness Back/Spine/Pelvis Back: no CVA tenderness Skin Rashes: no rashes Extrem General: Yes no clubbing, cyanosis or edema Results Reviewed Results Reviewed: Laboratory Tests 03/10/25 03/10/25 06:24 06:28 WBC 11.2 H Hgb 14.7 Hct 42.1 Plt Count 342 Sodium 140 Potassium 4.4 Creatinine 0.67 Estimated GFR > 60 Fasting Glucose 110 H Hemoglobin A1c % 5.2 Calcium 8.8 Magnesium 2.1 AST 32 ALT 27 Triglycerides 72 Cholesterol 192 LDL Cholesterol, Calc 129 H HDL Cholesterol 49 Prostate Specific Ag 0.86 Vitamin B12 655 25-OH Vitamin D Total 35.1 TSH 1.39 Total Testosterone 704 Fr Testosterone Dialys 67.6 Ur Specific [place] 1.015 Urine Protein Negative Urine Glucose (UA) Negative Urine Blood Negative Urine Nitrite Negative Ur Leukocyte Esterase Negative Coding Level of Care Code Est Pt Level 4 (96994) Diagnoses Degeneration of intervertebral disc of lumbar region with discogenic back pain M51.360 Disc-related pain type: discogenic back pain only Compression fracture of lumbar vertebra, unspecified lumbar vertebral level, sequela S32.000S Encounter type: sequela Lumbar vertebra fracture level: unspecified lumbar vertebra Pure hypercholesterolemia E78.00 Pulmonary emphysema, unspecified emphysema type J43.9 COPD type: emphysema Emphysema type: unspecified Impaired fasting glucose R73.01 Erectile dysfunction, unspecified erectile dysfunction type N52.9 Erectile dysfunction type: unspecified History of alcohol use Z87.898 Insomnia, unspecified type G47.00 Insomnia type: unspecified Smoker F17.200 Assessment & Plan Assessment & Plan (1) Lumbar degenerative disc disease: Code(s): M51.369 - Other intervertebral disc degeneration, lumbar region without mention of lumbar back pain or lower extremity pain Category: Medical Qualifiers: Disc-related pain type: discogenic back pain only Qualified Code(s): M51.360 - Other intervertebral disc degeneration, lumbar region with discogenic back pain only Plan: Lumbar spine x-rays last done in March 2025 revealed (+) chronic moderate superior endplate compression fracture of L3, chronic grade 1 retrolisthesis at L2-4 and stable degenerative changes most advanced at L2-3 and L3-4 Will increase his Gabapentin to 300 mg BID; continue Dicofenac 75 mg BID with food PRN and he is advised that I have no issues with putting him on short term oral prednisone in the future as needed whenever his low back pain flares up although have cautioned him that taking oral Prednisone often can increase his risks of developing diabetes in the future (2) Compression fx, lumbar spine: Comment: injury occurred when he fell from roof years ago Code(s): S32.000A - Wedge compression fracture of unspecified lumbar vertebra, initial encounter for closed fracture Category: Medical Qualifiers: Encounter type: sequela Lumbar vertebra fracture level: unspecified lumbar vertebra Qualified Code(s): S32.000S - Wedge compression fracture of unspecified lumbar vertebra, sequela Plan: Reinforced activity and weight-lifting restrictions to avoid aggravating his low back pain Will refer him to pain management for recommendations regarding his frequent low back pain recently (3) Pure hypercholesterolemia: Code(s): E78.00 - Pure hypercholesterolemia, unspecified Category: Medical Plan: Results of his labs done back in March 2025 reviewed and discussed with patient - he is advised that his cholesterol levels have improved slightly from his numbers back in 2021 Reinforced low cholesterol diet (4) COPD (chronic obstructive pulmonary disease): Code(s): J44.9 - Chronic obstructive pulmonary disease, unspecified Category: Medical Qualifiers: COPD type: emphysema Emphysema type: unspecified Qualified Code(s): J43.9 - Emphysema, unspecified Plan: Continue Advair Diskus 100-50 mcg 1 inhalation BID and Ventolin HFA 1 to 2 inhalations Q 6 hours PRN Chest x-rays done back in March 2025 show (+) findings of COPD emphysematous type changes without gross acute airspace disease (5) Impaired fasting glucose: Code(s): R73.01 - Impaired fasting glucose Category: Medical Plan: His FBS was elevated at 110 mg/dl on his labs done back in March 2025 although his HgbA1c was normal at 5.2% This could be due to him taking some oral prednisone recently around the time when he had his labs done Reinforced low calorie/low carb diet (6) Erectile dysfunction: Code(s): N52.9 - Male erectile dysfunction, unspecified Category: Medical Qualifiers: Erectile dysfunction type: unspecified Qualified Code(s): N52.9 - Male erectile dysfunction, unspecified Plan: Continue Sildenafil 50 to 100 mg PRN - Rx refilled His serum testosterone level was normal on his labs done back in March 2025 (7) History of alcohol use: Code(s): Z87.898 - Personal history of other specified conditions Category: Medical Plan: Patient states that he has been sober for over 2 years now He is encouraged to continue working on maintaining his sobriety Contrary to his perception regarding his struggle in regaining some of the weight that he lost immediately following his alcohol cessation, have advised patient that he has actually gained a little over 5 pounds in the past 3 months (8) Insomnia: Code(s): G47.00 - Insomnia, unspecified Category: Medical Qualifiers: Insomnia type: unspecified Qualified Code(s): G47.00 - Insomnia, unspecified Plan: Sleep hygiene reinforced Continue Trazodone 50 mg 1 to 2 tablets Q HS PRN (9) Smoker: Code(s): F17.200 - Nicotine dependence, unspecified, uncomplicated Category: Social Hx Plan: Patient is again counseled on complete smoking cessation Per request, we started him on Nicotine patches to help him quit We also referred him for lung cancer screening due to his history of smoking amd he is scheduled for this next month on 07/17/2025 Plan Follow up in 4 months Orders: Orders Hepatitis B,C Profile Today Z20.2 - Contact with and (suspected) exposure to infections with a predominantly sexual mode of transmission Syphilis Screen Today Z20.2 - Contact with and (suspected) exposure to infections with a predominantly sexual mode of transmission HIV Ab/Ag Today Z20.2 - Contact with and (suspected) exposure to infections with a predominantly sexual mode of transmission CT NG by PCR Urine Today Z20.2 - Contact with and (suspected) exposure to infections with a predominantly sexual mode of transmission Referrals Pain Management Referral M51.369 - Other intervertebral disc degeneration, lumbar region without mention of lumbar back pain or lower extremity pain, M54.50 - Low back pain, unspecified, S32.000S - Wedge compression fracture of unspecified lumbar vertebra, sequela Medications: Changed From gabapentin 300 mg PO BEDTIME 30 caps 0RF To gabapentin 300 mg PO BID 60 caps 3RF 30 days Refilled sildenafil 50 - 100 mg (0.5 - 1 x 100 mg) PO DAILY PRN 30 tabs 3RF sexual activity
[2025-06-09 16:54] VITALS: BP 128/76; PULSE 71; TEMP 36.2; O2SAT 96; BMI 23.3
--- OUTSIDE RECORDS SUMMARY | 2025-06-09 23:02 | XMS_ITS | Encounter Summary ---
Author Organization [employer] [facility] Address [address] 7 [place] [address] Care Team Providers Care Software Quality Automation Engineer Name Role Phone Unavailable Primary Care Provider [...]
--- OUTSIDE RECORDS SUMMARY | 2025-06-09 23:02 | XMS_ITS | Encounter Summary ---
Author Organization [employer] [facility] Address [address] [place] [address] Phone Care Team Providers Care Arson Investigator Name Role Phone Chela Baca PAGINATOR Unavailable Shari Albert MD Unavailable [phone] Raffi Bird MD Unavailable Unavailable Unknown, Unknown Primary Care Provider Nestor Samayoa MD, MPH Primary Care Provider + Encounter Details Date Type Department Care Team (Late st Contact Info) Description 09/24/2018 Procedure Pass [facility] Endoscopy Admitting Dept Virtual Department [address] [place] [address] [id number] Social History Tobacco Use Types Packs/Day Years [...] documented as of this encounter Care Teams Arson Investigator Relationship Specialty Start Date End Date Unknown, Unknown, MD PCP - General 08/02/18 09/10/19 Nestor Carmen MD, MPH [address] [place] [address] [email or web address] PCP - General Family Medicine 09/11/19 Chela Baca CNP [address] [place] [address] [place] [address] [email or web address] Historical LMR Provider 04/21/17 Shari Albert MD [address] [place] [address] [email or web address] Historical LMR Provider 04/21/17 07/09/21 Raffi Bird MD Historical LMR Provider 04/21/17 07/09/21 documented as of this encounter Additional Source Comments The information contained in this document represents components of the legal health record. It is not the complete legal health record.[facility]
--- OUTSIDE RECORDS SUMMARY | 2025-06-09 23:02 | XMS_ITS | Encounter Summary ---
Author Organization [facility] Address [address] [place] [address] Phone Care Team Providers Care Seam Stayer Name Role Phone Chela Baca CNP Unavailable [phone] Shari Albert MD Unavailable [phone] Raffi Bird MD Unavailable Unavailable Nestor Carmen MD, MPH Primary Care Provider + Encounter Details Date Type Department Care Team (Late st Contact Info) Description 11/30/2020 Procedure Pass [facility] Endoscopy Admitting Dept Virtual Department [address] [place] [phone] Social History Tobacco Use Types Packs/Day Years [...] on filedocumented in this encounter Care Teams Seam Stayer Relationship Specialty Start Date End Date Nestor Carmen MD, MPH [address] [place] [address] josé PCP - General Family Medicine 09/11/19 Chela Baca CNP [address] [place] [address] [address] [place] [address] [email or web address] Historical LMR Provider 04/21/17 Shari Albert MD [address] [place] [address] [address] [place] [address] [email or web address] Historical LMR Provider 04/21/17 07/09/21 Raffi Bird MD Historical LMR Provider 04/21/17 07/09/21 documented as of this encounter Additional Source Comments The information contained in this document represents components of the legal health record. It is not the complete legal health record.[facility]
--- OUTSIDE RECORDS SUMMARY | 2025-06-09 23:02 | XMS_ITS | Encounter Summary ---
Author Organization [facility] Address [address] [place] [address] Phone Care Team Providers Care Environmental Health Technician Name Role Phone Chela Baca SINGER SONGWRITER Unavailable [phone] Shari Albert MD Unavailable [phone] Raffi Bird MD Unavailable Unavailable Nestor Carmen MD, MPH Primary Care Provider + Encounter Details Date Type Department Care Team (Late st Contact Info) Description 08/02/2020 Transcribe Orders Virtual Department [address] [place] [address] Ana Moncada, MIXED CROP AND LIVESTOCK FARM WORKER [address] [place] [address] Fever, unspecified fever cause (Primary Dx) Social [...] be available within 24 to 48 hrs. [facility] Symptomatic? YES [facility] 08/03/2020 10:2 0 AM EST 08/03/2020 5:09 PM EST us Ana Moncada MIXED CROP AND LIVESTOCK FARM WORKER LAB GENERAL ORDERABLES Final Result [facility] [address] [place] [address] [facility] [address] [place] [address] documented in this encounter Visit Diagnoses Diagnosis Fever, unspecified fever cause- Primary documented in this encounter Additional Health Concerns Infection Onset Date Last Indicated Resolved Time CoV-Risk 08/02/2020 08/03/2020 08/12/2020 1:24 AM EST documented as of this encounter Care Teams Environmental Health Technician Relationship Specialty Start Date End Date Nestor Carmen MD, MPH [address] [place] [address] [email or web address] PCP - General Family Medicine 09/11/19 Chela Baca, PRICILA [address] [place] [address] [place] [address] Historical LMR Provider 04/21/17 Shari Albert MD [address] [place] [address] [address] [place] [address] [email or web address] Historical LMR Provider 04/21/17 07/09/21 Raffi Bird MD Historical LMR Provider 04/21/17 07/09/21 documented as of this encounter Additional Source Comments The information contained in this document represents components of the legal health record. It is not the complete legal health record.[facility]
--- OUTSIDE RECORDS SUMMARY | 2025-06-09 23:02 | XMS_ITS | Clinical Summary ---
Author Organization [employer] Address [address] [facility] 7t [place] [address] Care Team Providers Care Chain Tender Name Role Phone Unavailable Primary Care [...]
--- OUTSIDE RECORDS SUMMARY | 2025-06-09 23:02 | XMS_ITS | Encounter Summary ---
Author Organization [facility] Address [address] [place] [id number] Phone Care Team Providers Care Family Assistant Name Role Phone Chela Baca PURSE SEINER Unavailable [phone] Shari Albert MD Unavailable [phone] Raffi Bird MD Unavailable Unavailable Nestor Carmen MD, MPH Primary Care Provider + Encounter Details Date Type Department Care Team (Latest Contact Info) Description 08/18/2020 Ancillary Orders Virtual Department [address] [place] [address] Barbara Best, YAS [address] [place] [address] [phone] [email or web address] Lumbar radiculopathy Social History Tobacco Use Types [...] of small to moderate-sized posterior L2-L3 and L3-H5xoeidhubc endplate osteophytes. There is mild L3 on [...] unspecified documented in this encounter Care Teams Family Assistant Relationship Specialty Start Date End Date Nestor Carmen MD, MPH [address] [place] [address] [email or web address] PCP - General Family Medicine 09/11/19 Chela Baca, PRICILA 14 [facility] [address] [place] [phone] [email or web address] Historical LMR Provider 04/21/17 Shari Albert MD [address] [place] [address] [place] [phone] [email or web address] Historical LMR Provider 04/21/17 07/09/21 Raffi Bird MD Historical LMR Provider 04/21/17 07/09/21 documented as of this encounter Additional Source Comments The information contained in this document represents components of the legal health record. It is not the complete legal health record.[facility]
--- OUTSIDE RECORDS SUMMARY | 2025-06-09 23:02 | XMS_ITS | Encounter Summary ---
Author Organization [employer] [facility] Address [address] [facility] 7 [place] [address] Care Team Providers Care Aircraft Machinist Name Role Phone Unavailable Primary Care Provider [...]
--- OUTSIDE RECORDS SUMMARY | 2025-06-09 23:02 | XMS_ITS | Clinical Summary ---
Author Organization [facility] Address [facility] [employer] [address] [address] Phone Care Team Providers Care Supervisor Trust Accounts Name Role Phone Chela Baca SOURCE WATER PROTECTION SPECIALIST Unavailable Nestor Carmen MD, MPH Primary Care [...] down using a #11 scalpel. Using the xfkcya-tbsq-oumehy technique, each lesion treated with liquid nitrogen [...] FOBT 2013 SIGMOIDOSCOPY 2013 VIRTUAL COLONOSCOPY 2013 RSV VACCINE (1 - Risk 50-74 years 1-dose series) 2018 ZOSTER VACCINES (1 of 2) 2018 CREATININE [...] PM EST Tobacco abuse COMPREHENSIVE METABOLIC PANEL (CMP) Routine 06/03/2018 8:49 AM EST Unintentional weight loss from Last 3 Months or Most Recently Relevant to Health Maintenance Results * ENDOSCOPY, COLON (11/30/2020 1:22 PM EDT) Narrative Transcriptions Yony Martin MD - 11/30/2020 1:22 PM EDT Patient Name: Capo Can Attending MD:: YONY MARTIN MD, Procedure Date: 11/30/2020 1:22 PM Date of : 1970 Age: 50 Admit Type: Outpatient Gender: Male Room: [place] [address] Referring MD: Nestor Carmen MD Exam Type: [...] 1:22 PM Procedure Code(s): --- Professional --- 51851, Colonoscopy, flexible; with biopsy, single or multiple --- Technical --- 88616, Colonoscopy, flexible; with biopsy, single or multiple [...] or abscess without bleeding CPT copyright 2018 [employer]. All rights reserved. The codes documented in this report are preliminary and upon housing inspector reviewmay be revised to meet current compliance requirements. Procedure Date: 11/30/2020 1:22:[address] [place] [id number] us Nestor Carmen MD, MPH GI PROCEDURE ORDERABLES Final Result * (ABNORMAL) Lipid panel (06/28/2018 4:45 PM EST) HDL 69 mg/dL [facility] Comment: Interpretation <40 mg/dL: Low HDL cholesterol (major risk factor for CHD) Greater than or equal to 60 mg/dL: High HDL cholesterol ( negative risk factor for CHD) HDL - cholesterol is affected by a number of factors, e.g. smoking, excerise, hormones, sex and age. CHOLESTEROL 158 0 - 240 mg/dL [facility] TRIGLYCERIDES 70 30 - 160 mg/dL [facility] LDL 75 50 - 129 mg/dL [facility] Comment: LDL levels in terms of risk for coronary heart disease: <100 mg/dL: Optimal 100-129 mg/dL: Near or above optimal 130-159 mg/dL: Borderline high 160-189 mg/dL: High >190 mg/dL: Very High CARDIAC RISK RATIO 2.3(L) 3.4 - 5.0 [facility] Blood 06/28/2018 4:45 PM EST 06/28/2018 6:34 PM EST us Chela Baca SOURCE WATER PROTECTION SPECIALIST LAB BLOOD BKR ORDERABL ES Final Result [address] [address] * (ABNORMAL) Comprehensive metabolic panel (06/03/2018 8:49 AM EST) SODIUM 140 133 - 146 mmol/L [facility] POTASSIUM 4.7 3.3 - 5.1 mmol/L [facility] CHLORIDE 100 96 - 108 mmol/L [facility] CO2 24 21 - 35 mmol/L [facility] BUN 9 6 - 19 mg/dL [facility] CREATININE 0.70 0.5 - 1.5 mg/dL [facility] GLUCOSE 96 70 - 99 mg/dL [facility] ALBUMIN 4.4 3.9 - 4.8 g/dL [facility] TOTAL PROTEIN 7.2 6.5 - 8.0 g/dL [facility] CALCIUM 9.4 8.4 - 10.3 mg/dL [facility] ALKALINE PHOSPHATASE 46 39 - 117 U/L [facility] TOTAL BILIRUBIN 0.4 0.0 - 1.2 mg/dL [facility] AST 26 0 - 37 U/L [facility] ALT 20 0 - 40 U/L [facility] GLOBULIN 2.8 1 - 4.8 g/dL [facility] EGFR 110 >59 mL/min/1.7 3m2 [facility] Comment:If patient is black, multiply result by 1.159. Estimated glomerular filtration rate calculated using the CKD-EPI equation. ANION GAP 21(H) 10 - 20 mmol/L [facility] Blood 06/03/2018 8:49 AM EST 06/03/2018 2:08 PM EST Chela Baca SOURCE WATER PROTECTION SPECIALIST LAB BLOOD BKR ORDERABL ES Final Result [facility] [address] [place] [address] from Last 3 Months or Most Recently Relevant to Health Maintenance Insurance [facility] [address] [place] [address] [place] [address] [place] [address] Member Subscriber Plan / Payer (Ef fective 2017-Present) Name:Capo Can Relation to Subscriber:Self Name:Capo Can Payer ID:Not on file Type:[facility] Address: [place] [id number] Care Teams Supervisor Trust Accounts Relationship Specialty Start Date End Date Nestor Carmen MD, MPH [address] [place] [phone] [email or web address] PCP - General Family Medicine 09/11/19 Chela Baca CNP [address] [place] [address] [address] [place] [address] [email or web address] Historical LMR Provider 04/21/17 Additional Source Comments The information contained in this document represents components of the legal health record. It is not the complete legal health record.[facility]
== END 2025-06-09 17:24 | disposition home or self-care (01) ==
LOC: HO.HMCH 16:49
PROVIDERS: PCP Internal Medicine; Visit Provider Internal Medicine
DX: M51.360 Other intervertebral disc degeneration, lumbar region with discogenic back pain only (principal); S32.000S Wedge compression fracture of unspecified lumbar vertebra, sequela; E78.00 Pure hypercholesterolemia, unspecified; J43.9 Emphysema, unspecified; R73.01 Impaired fasting glucose; N52.9 Male erectile dysfunction, unspecified; Z87.898 Personal history of other specified conditions; G47.00 Insomnia, unspecified; F17.200 Nicotine dependence, unspecified, uncomplicated